=== PATIENT | male | born 1930 | race Caucasian/White ===

== ENCOUNTER 2019-07-28 17:55 | Observation (INO) ==
[2019-07-28 18:51] LABS: Hematocrit 40.9 % (42.0-52.0); Hemoglobin 13.9 gm/dL (13.5-18.0); Mean Cell Volume 101.5 fl (78-100); Mean Corpuscular Hemoglobin 34.5 pg (27-31); Mean Platelet Volume 8.6 fl (8-11.3); Neutrophil # 7.6 K/mm3 (1.3-6.0); Neutrophil % 93.3 % (42-75.0); Platelet Count 176 K/mm3 (150-450); Red Blood Count 4.03 M/mm3 (4.7-6.0); Red Cell Distribution Width 11.9 % (11.5-14.0); White Blood Count 8.1 K/mm3 (4.0-10.5)
[2019-07-28 19:02] LABS: Albumin * 3.5 gm/dl (3.4-5.0); Anion Gap 13.8 mmol/L (6.8-13.8); BUN/Creatinine Ratio 19.4 (9.0-21.6); Bilirubin, Total 0.7 mg/dL (0.0-1.1); Calcium * 8.9 mg/dL (7.9-10.9); Carbon Dioxide 26.7 mmol/L (24-32.6); Potassium 4.5 mmol/L (3.4-4.6); Total Protein 6.9 gm/dL (6.2-8.2)
[2019-07-28 19:59] LABS: Urine Bilirubin Negative (NEGATIVE); Urine Blood Negative /ul (NEGATIVE); Urine Ketone Negative (NEGATIVE); Urine Nitrite Negative (NEGATIVE); Urine Protein >=300 mg/dL (NEGATIVE); Urine Specific Gravity <=1.005 SP.GR. (1.005-1.030); Urine Urobilinogen Normal (NORMAL)
[2019-07-28 20:06] LABS: Urine Appearance Cloudy (CLEAR); Urine Color Yellow; Urine pH >=9 pH (5.0-7.0)
[2019-07-28 20:07] LABS: Urine Bacteria 1+; Urine Mucus Few - 1+; Urine RBC 0-5 /hpf (0-5)
--- NOTE | 2019-07-28 20:41 | ERNOTE ---
Neuro HPI ER Record Date of Service: 07/28/19 Presenting Symptoms: difficulty walking Time Seen by Provider: 07/28/19 18:05 Source: patient, family Exam Limitations: no limitations Immunizations: IMMUNIZATION HX Immunizations Up to Date Yes History of Influenza Vaccine Yes Hx Pneumococcal Vaccination Yes Allergies/Adverse Reactions: Allergies Allergy/AdvReac Type Severity Reaction Status Date / Time No Known Allergies Allergy Verified 07/28/19 18:03 Home Medications: HOME MEDICATIONS vitamins A,C,Q-ubvl-gksplg 7,160 unit-113 mg-100 unit tablet 1 tab PO BID tab 08/07/18 [Last Taken Unknown] gabapentin 600 mg tablet 600 mg PO BID #180 tab 11/21/18 [Last Taken Unknown] simvastatin 40 mg tablet 40 mg PO QPM #90 tab 03/09/19 [Last Taken Unknown] - Pain Score Pain Score #1 Pain Score: 0 - History of Present Illness Narrative: The patient is a 89 year old male who presents for difficulty walking and weakness which has been present since [employer]. There are no associated symptoms. The patient denies pain. There are no alleviating factors. There are no aggravating factors. Previous treatments have included: none. The past medical history includes: Bladder Ca, BPH and kidney stone. The social history is positive for former smoker. The patient has had no ill contacts. 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 states that when patient returned home around 1730 he was having difficulty with walking, finding his words and was noted to be weak. Patient upon arrival states patient has improved. Review of Systems - Review of Systems Constitutional: Present: no symptoms reported. Absent: recent illness, fever, fatigue EYE: Present: no symptoms reported. Absent: vision changes ENT: Present: no symptoms reported. Absent: ear pain, nasal drainage, sore throat Respiratory: Present: no symptoms reported. Absent: shortness of breath, cough Cardiology: Present: no symptoms reported. Absent: chest pain Gastrointestinal/Abdominal: Present: no symptoms reported. Absent: nausea, vomiting, diarrhea, abdominal pain Genitourinary: Present: no symptoms reported. Absent: dysuria Musculoskeletal: Present: no symptoms reported Skin: Present: no symptoms reported. 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 Horn with [facility] Encounter for central line placement Onset Date: ~12/07/10 [facility] right subclavian central venous line H/O barium enema Onset Date: ~10/03/11 [facility]; scattered diverticular disease no masses H/O exploratory laparotomy Onset Date: ~12/22/10 [facility] repair of small bowel obstruction H/O total cystectomy Onset Date: ~12/07/10 Dr. Ilan Everett History of flexible sigmoidoscopy Onset Date: ~02/05/02 Dr. Angel Chiang MD Normal redundant colon History of genitourinary surgery Onset Date: ~12/07/10 ileal coduit urinary diversion. Dr. Ilan Everett [facility] History of radical prostatectomy Onset Date: ~12/07/10 Dr. Ilan Everett Hx of lithotripsy Onset Date: Unknown x3 Family History: Family History (Updated 08/07/18 @ 16:30 by Reina Baker RN) Father , unknown age; "old age" No problems noted. Mother , unknown age Diabetes Arthritis Social History: (Last Reviewed 07/28/19 @ 20:22 by CAN Glez) Social History: adopted: No Marital status: lives independently: Yes household members: spouse number of children: 2 current occupational status: retired Previous occupational history: [employer] Highest education level completed: high school graduate Service: Yes Tobacco: Smoking Status: Former smoker Alcohol: alcohol intake: never Substance Use: substance use type: unknown Dietary Habits: caffeine: Yes Physical Exam - Physical Exam General Appearance: Present: wd/wn, alert, no apparent distress Head Exam: Present: normal inspection, no evidence of injury Eye Exam: Normal inspection: bilateral, PERRL: bilateral, EOMI: bilateral Neck: Present: normal inspection Respiratory: Present: no respiratory distress, normal breath sounds, no accessory muscle use, lungs clear Cardiovascular/Chest: Present: regular rate, rhythm, no murmur Gastrointestinal/Abdominal: Present: normal bowel sounds, nontender, nond istended, soft, no organomegaly Neurological Exam: Present: alert, oriented, normal mood/affect, 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, normal cerebellar test, facial droop - intermittent droop noted to left face, tongue midline, motor weakness - slight jama drift to left arm Skin Exam: Present: normal color, warm/dry Boissevain Coma Scale - Assess Eye Opening: Spontaneous Motor: Obeys Commands Verbal: Oriented - Total Coma Scale Total: 15 Initial Stroke Assessment - NIH Stroke Scale Level of Consciousness: Alert LOC Questions (Year and Age): Answers both correctly LOC Commands (open/close eyes/fist): Performs both correctly Lateral Gaze Paresis: None Visual Field Loss: No visual loss Facial Palsy: Normal movement Right Arm Motor (10 sec hold): No drift Left Arm Motor (10 sec hold): Drift Right Leg Motor (5 sec hold): No drift Left Leg Motor (5 sec hold): No drift Limb Ataxia (finger/nose heel/carmichael): Absent Sensory Loss (pinprick arms/legs/face): No sensory loss Language Aphasia (description/naming/reading): No aphasia; normal Dysarthria (speech clarity): Normal articulation Neglect Inattention (visual/tactile/auditory/spatial/person): No neglect Initial Stroke Scale Score:: 1 Stroke Inclusion/Exclusion Cri - Inclusion Questions: Yes Onset of symptoms <3 1/2 hours of admission to ETC: No - Exclusion Questions: Major symptoms rapidly improving: Yes Seizure at onset of stroke: No SBP>185; DBP>110 at time treatment is to begin: No Patient received Heparin or Coumadin within 48 hours: No Patient has elevated PTT or Protime/INR: No Stroke, head injury, major surgery, serious trauma in 3 mon.: No Previous intracranial hemmorhage: No Recent [place]: No Known AV malformation or aneurysm: No Blood glucose <50mg/dl or >400mg/dl: No NIHSS Score <4 or >22 performed by physician: Yes Progress - Date and Time Seen: Date and Time: 07/28/19 20:19 Discussed case with and will admit for observation with testing of MRI Brain and Carotid Duplex tomorrow. - Results and Orders Patient's Lab Results:: I have reviewed the patient's lab results. - Vital Signs Patient's Vital Signs:: I have reviewed the patient's vital signs. Vital Signs: Vital Signs 07/28/19 18:03 Temperature 37.4 C Pulse Rate 88 Respiratory Rate 16 Blood Pressure 119/68 O2 Sat by Pulse Oximetry 95 - EKG EKG #1 EKG: NSR, nonspecific ST T wave changes, other EKG read: Reviewed by me EKG Comments: Incomplete RBBB Left Anterior fascicular block - X-Ray X-Ray #1 X-Ray: chest Interpretation: Reviewed by me - CT/Ultrasound CT/Ultrasound Narrative: Impression: No acute intracranial process. Mild cerebral volume loss. Mild chronic small vessel ischemic disease. Opacification of the left sphenoid sinus. Electronically signed by Elke Man D.O.. - Progress/Reassessment Chief Complaint: Altered Mental Status Departure Clinical Impression: TIA (transient ischemic attack) - Departure Disposition: Still a patient Condition: Stable Referrals: María Elena Amato MD [Primary Care Provider] -
--- NOTE | 2019-07-29 08:28 | HPDIS ---
Chief Complaint - Chief Complaint Date of Service: 07/29/19 Time of Service: 08:20 Chief Complaint: difficulty of walking History of Present Illness: Cam Ko is an 89-year-old white male with past medical history of bladder cancer, macular degeneration, hyperlipidemia, who was admitted on 07/28/2019 because of difficulty of walking. The patient says that is early in the morning he got a calf out of a ditch and had his right foot stuck in a mud pool. He says he went back home for dinner and then went to his friend's house after that. His friends did not notice any thing unusual with him. On the way back he started having this shakiness. His called his son and they brought him to the emergency room. This is very different from his 's story in the ED. The said that the patient was his usual self when he left the house at 1230. 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 When he returned around 5:30 p.m. the noticed that he was having difficulty with walking, finding his words and was noted to be weak. In the emergency room his blood work-up were essentially within normal limits except for a possible urinary tract infection. His CTS showed -No acute intracranial process.Mild cerebral volume loss. Mild chronic small vessel ischemic disease.Opacification of the left sphenoid sinus. This morning the patient says he is his back to his usual self and just came back from an MRI of the brain. We will start him baby ASA and will await for official reading of his MRI . 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 Horn with [facility] Encounter for central line placement Onset Date: ~12/07/10 [facility] right subclavian central venous line H/O barium enema Onset Date: ~10/03/11 [facility]; scattered diverticular disease no masses H/O exploratory laparotomy Onset Date: ~12/22/10 [facility] repair of small bowel obstruction H/O total cystectomy Onset Date: ~12/07/10 Dr. Ilan Everett History of flexible sigmoidoscopy Onset Date: ~02/05/02 Dr. Angel Chiang MD Normal redundant colon History of genitourinary surgery Onset Date: ~12/07/10 ileal coduit urinary diversion. Dr. Ilan Everett [facility] History of radical prostatectomy Onset Date: ~12/07/10 Dr. Ilan Everett Hx of lithotripsy Onset Date: Unknown x3 Family History: Family History (Updated 08/07/18 @ 16:30 by Reina Baker RN) Father , unknown age; "old age" No problems noted. Mother , unknown age Diabetes Arthritis Social History: (Last Reviewed 07/28/19 @ 20:22 by CAN Glez) Social History: adopted: No Marital status: lives independently: Yes household members: spouse number of children: 2 current occupational status: retired Previous occupational history: [employer] Highest education level completed: high school graduate Service: Yes Tobacco: Smoking Status: Former smoker Alcohol: alcohol intake: never Substance Use: substance use type: unknown Dietary Habits: caffeine: Yes Review Of Systems (GEN) - Review of Systems Generalized/Overall Review: Present: Weakness. Absent: Chills, Fever EENTM: Present: Blurred Vision Respiratory: Absent: Cough, Shortness of Breath Cardiac: Absent: Chest Pain, Edema, Palpitations Abdominal: Absent: Nausea, Vomiting, Hematemesis Genitourinary: Absent: Urgency, Frequency Musculoskeletal: Present: Joint Pain. Absent: Back Pain Neurological: Absent: Headache, Anxiety, Depressed Skin: Present: Lesions. Absent: Rash Endocrine: Absent: Intolerance to Cold, Intolerance to Heat Misc: All systems neg except as marked Immunizations: IMMUNIZATION HX Immunizations Up to Date Yes History of Influenza Vaccine Yes Hx Pneumococcal Vaccination Yes Allergies/Adverse Reactions: Allergies Allergy/AdvReac Type Severity Reaction Status Date / Time No Known Allergies Allergy Verified 07/28/19 21:00 Home Medications: HOME MEDICATIONS vitamins A,C,P-cauu-yjfbee 7,160 unit-113 mg-100 unit tablet 1 tab PO BID tab 08/07/18 [Last Taken Unknown] simvastatin 40 mg tablet 40 mg PO QPM #90 tab 03/09/19 [Last Taken Unknown] Gabapentin [Neurontin] 300 mg PO DAILY 07/28/19 [Last Taken Unknown] Aspirin [Aspirin Chewable] 81 mg PO DAILY #30 tab.chew 07/29/19 [Last Taken Unknown] Exam - Exam Vital Signs: Vital Signs - Last Taken Temp 36.3 C 07/29/19 04:00 Pulse 62 07/29/19 04:00 Resp 16 07/29/19 04:00 BP 108/63 07/29/19 04:00 Pulse Ox 98 07/29/19 04:00 Constitutional: Present: Alert, Oriented x3, Cooperative ENT Exam: Present: hard of hearing Eye Exam: bilateral eye: normal inspection, PERRL, EOMI Neck: Present: supple. 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, no motor/sensory deficits, oriented x 3 Diagnostic Studies: Abnormal Lab Results 07/28/19 07/28/19 07/28/19 Range/Units 18:47 18:47 19:46 RBC 4.03 L (4.7-6.0) M/mm3 Hct 40.9 L (42.0-52.0) % MCV 101.5 H (78-100) fl MCH 34.5 H (27-31) pg Neutrophils % 93.3 H (42-75.0) % Lymphocytes % 1.8 L (20-51) % Neutrophils # 7.6 H (1.3-6.0) K/mm3 Lymphocytes # 0.15 L (1.5-3.5) k/mm3 Random Glucose 123 H (70-110) mg/dL ALT 12 L (19-67) U/L Urine Protein >=300 H (NEGATIVE) mg/dL Prot Sulfosalicylic Acd 2+ H (0) mg/dL Ur Leukocyte Esterase 75 H (NEGATIVE) /ul Urine WBC 5-10 H (0-5) /hpf Urine Bacteria 1+ H (NONE) Urine Mucus Few - 1+ H (NONE) Microbiology 07/28/19 19:46 Urine Culture - Preliminary Urine,Voided No Growth Laboratory Results WBC 8.1 K/mm3 (4.0-10.5) 07/28/19 18:47 RBC 4.03 M/mm3 (4.7-6.0) L 07/28/19 18:47 Hgb 13.9 gm/dL (13.5-18.0) 07/28/19 18:47 Hct 40.9 % (42.0-52.0) L 07/28/19 18:47 MCV 101.5 fl (78-100) H 07/28/19 18:47 MCH 34.5 pg (27-31) H 07/28/19 18:47 MCHC 34.0 g/dl (32-36) 07/28/19 18:47 RDW 11.9 % (11.5-14.0) 07/28/19 18:47 Plt Count 176 K/mm3 (150-450) 07/28/19 18:47 MPV 8.6 fl (8-11.3) 07/28/19 18:47 Immature Gran % (Auto) 0.20 % (0.001-0.429) 07/28/19 18:47 Immature Gran # (Auto) 0.02 K/mm3 (0.000-0.0310) 07/28/19 18:47 93.3 % (42-75.0) H 07/28/19 18:47 1.8 % (20-51) L 07/28/19 18:47 4.1 % (0.0-9) 07/28/19 18:47 0.4 % (0.0-3.0) 07/28/19 18:47 0.2 % (0.0-1.0) 07/28/19 18:47 Nucleated RBC % 0.0 k/mm3 (0-1) 07/28/19 18:47 7.6 K/mm3 (1.3-6.0) H 07/28/19 18:47 0.15 k/mm3 (1.5-3.5) L 07/28/19 18:47 0.3 k/mm3 (0.0-1.0) 07/28/19 18:47 0.0 k/mm3 (0.0-0.7) 07/28/19 18:47 Absolute Basophils 0.0 k/mm3 (0.0-0.1) 07/28/19 18:47 Sodium 138 mmol/L (132-142) 07/28/19 18:47 138 mmol/L (130-142) 07/28/19 18:47 Potassium 4.5 mmol/L (3.4-4.6) 07/28/19 18:47 Chloride 102 mmol/L (97-106) 07/28/19 18:47 Carbon Dioxide 26.7 mmol/L (24-32.6) 07/28/19 18:47 13.8 mmol/L (6.8-13.8) 07/28/19 18:47 BUN 21 mg/dL (6-23) 07/28/19 18:47 1.08 mg/dL (0.4-1.4) 07/28/19 18:47 Est GFR (Non-Af Amer) 69 mL/min (60-130) D 07/28/19 18:47 19.4 (9.0-21.6) 07/28/19 18:47 123 mg/dL (70-110) H 07/28/19 18:47 Calcium 8.9 mg/dL (7.9-10.9) 07/28/19 18:47 Calcium Adj for Albumin 9.0 mg/dL (8.4-10.2) 07/28/19 18:47 0.7 mg/dL (0.0-1.1) 07/28/19 18:47 AST 31 U/L (0-48) 07/28/19 18:47 ALT 12 U/L (19-67) L 07/28/19 18:47 59 U/L (50-170) 07/28/19 18:47 6.9 gm/dL (6.2-8.2) 07/28/19 18:47 3.5 gm/dl (3.4-5.0) 07/28/19 18:47 Yellow 07/28/19 19:46 Cloudy (CLEAR) 07/28/19 19:46 >=9 pH (5.0-7.0) 07/28/19 19:46 Ur Specific Lincoln <=1.005 SP.GR. (1.005-1.030) 07/28/19 19:46 >=300 mg/dL (NEGATIVE) H 07/28/19 19:46 Negative mg/dL (NEGATIVE) 07/28/19 19:46 Negative mg/dL (NEGATIVE) 07/28/19 19:46 Negative /ul (NEGATIVE) 07/28/19 19:46 Negative (NEGATIVE) 07/28/19 19:46 Negative mg/dl (NEGATIVE) 07/28/19 19:46 Prot Sulfosalicylic Acd 2+ mg/dL (0) H 07/28/19 19:46 Normal EU/dl (NORMAL) 07/28/19 19:46 Ur Leukocyte Esterase 75 /ul (NEGATIVE) H 07/28/19 19:46 0-5 /hpf (0-5) 07/28/19 19:46 5-10 /hpf (0-5) H 07/28/19 19:46 Ur Epithelial Cells 0-5 /hpf (0-5) 07/28/19 19:46 1+ (NONE) H 07/28/19 19:46 Few - 1+ (NONE) H 07/28/19 19:46 Culture to follow 07/28/19 19:46 Assessment/Plan - Narrative Narrative: We will await official reading of his MRI. If negative will discharge patient and will CUS and EAcho with bbule study as outpatient. Will continue his home medications. Will start him on baby ASA for now. - Assessment/Plan (1) TIA (transient ischemic attack) Assessment: will follow up with MRI. start ASA. ADDENDUM: MRi no acute intracranial findings. Will schedule a CUS and Echo with bubble study as outpatient. Problem: Resolved (2) Macular degeneration Problem: Chronic Qualifiers: Macular degeneration type: unspecified type Eye laterality: unspecified Qualified Code(s): H35.30 - Unspecified macular degeneration (3) History of bladder cancer Problem: Chronic (4) Hypercholesterolemia Problem: Chronic (5) Calculus of kidney Problem: Chronic (6) UTI (urinary tract infection) Assessment: on UA but preliminary reading of UCS - NG. Problem: Acute Qualifiers: Encounter type: initial encounter (1) TIA (transient ischemic attack) Diagnosis(s): vs heat stroke? Problem: Resolved (2) Macular degeneration Problem: Chronic Qualifiers: Macular degeneration type: unspecified type Eye laterality: unspecified Qualified Code(s): H35.30 - Unspecified macular degeneration (3) History of bladder cancer Problem: Chronic (4) Hypercholesterolemia Problem: Chronic (5) Calculus of kidney Problem: Chronic (6) UTI (urinary tract infection) Diagnosis(s): NG on preliminary reading. Problem: Acute Qualifiers: Encounter type: initial encounter Date of Discharge:: 07/29/19 Description of Stay: Cam Ko is an 89-year-old white male with past medical history of bladder cancer, macular degeneration, hyperlipidemia, who was admitted on 07/28/2019 because of difficulty of walking. The patient says that is early in the morning he got a calf out of a ditch and had his right foot stuck in a mud pool. He says he went back home for dinner and then went to his friend's house after that. His friends did not notice any thing unusual with him. On the way back he started having this shakiness. His called his son and they brought him to the emergency room. This is very different from his 's story in the ED. The said that the patient was his usual self when he left the house at 1230. 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 When he returned around 530 noticed that he was having difficulty with walking, finding his words and was noted to be weak. In the emergency room his blood work-up were essentially within normal limits except for a possible urinary tract infection. His CTS showed -No acute intracranial process.Mild cerebral volume loss. Mild chronic small vessel ischemic disease.Opacification of the left sphenoid sinus. When seen this morning the patient says is his back to his usual self. His MRI showed - MODERATE TO SEVERE DIFFUSE ATROPHY WITH MILD TO MODERATE WHITE MATTER MICROVASCULAR ISCHEMIC DISEASE. NO ACUTE INTRACRANIAL PATHOLOGY OTHERWISE IDENTIFIED. He is stable to be discharged today and will schedule a CUS and Echo with bubble study on outpatient basis. If WNL , the patient could have had a heat stroke as he was out in the field freeing a calf that was stucked in the ditch versus a TIA. We will discuss then whether to continue him on a baby ASA or not. we will follow up patient in 2 weeks. Procedures Performed: none Results and Findings: Pending Mircobiology Results 07/28/19 19:46 Urine,Voided Urine Culture - Preliminary No Growth Lab Pending Results 07/28/19 18:47: WBC 8.1, RBC 4.03 L, Hgb 13.9, Hct 40.9 L, MCV 101.5 H, MCH 34.5 H, MCHC 34.0, RDW 11.9, Plt Count 176, MPV 8.6, Immature Gran % (Auto) 0.20, Immature Gran # (Auto) 0.02, Neutrophils % 93.3 H, Lymphocytes % 1.8 L, Monocytes % 4.1, Eosinophils % 0.4, Basophils % 0.2, Nucleated RBC % 0.0, Neutrophils # 7.6 H, Lymphocytes # 0.15 L, Monocytes # 0.3, Eosinophils # 0.0, Absolute Basophils 0.0 07/28/19 18:47: Sodium 138, Plasma Sodium 138, Potassium 4.5, Chloride 102, Carbon Dioxide 26.7, Anion Gap 13.8, BUN 21, Creatinine 1.08, Est GFR (Non-Af Amer) 69 D, BUN/Creatinine Ratio 19.4, Random Glucose 123 H, Calcium 8.9, Heriberto cium Adj for Albumin 9.0, Total Bilirubin 0.7, AST 31, ALT 12 L, Alkaline Phosphatase 59, Total Protein 6.9, Albumin 3.5 07/28/19 19:46: Urine Color Yellow, Urine Appearance Cloudy, Urine pH >=9, Ur Specific Lincoln <=1.005, Urine Protein >=300 H, Urine Glucose (UA) Negative, Urine Ketones Negative, Urine Blood Negative, Urine Nitrate Negative, Urine Bilirubin Negative, Prot Sulfosalicylic Acd 2+ H, Urine Urobilinogen Normal, Ur Leukocyte Esterase 75 H, Urine RBC 0-5, Urine WBC 5-10 H, Ur Epithelial Cells 0- 5, Urine Bacteria 1+ H, Urine Mucus Few - 1+ H, Urine Culture Comments Culture to follow Discharge Location: Home Disposition: Home self-care Condition: Stable Discharge Activity: Activity as tolerated Discharge Diet: General/regular food Referrals: María Elena Amato MD [Primary Care Provider] - Additional Patient Instructions (free text): -Please make TCM appointment unless fci discharge, or if following up with outside provider. Please schedule CUS and Echo with bubble study as outpatient. Follow up with PCP in 2 weeks. Thank you! Jeanne @ [facility] [phone] or Saadia at [facility] [phone]. Prescriptions (Any new or edited meds): Aspirin [Aspirin Chewable] 81 mg PO DAILY #30 tab.chew Complete Home Medications List: Complete Home Medication List: vitamins A,C,V-eccz-visnla 7,160 unit-113 mg-100 unit tablet 1 tab PO BID tab 08/07/18 simvastatin 40 mg tablet 40 mg PO QPM #90 tab 03/09/19 Gabapentin [Neurontin] 300 mg PO DAILY 07/28/19 Aspirin [Aspirin Chewable] 81 mg PO DAILY #30 tab.chew 07/29/19 Amb Orders for Discharge: US Carotid Duplex Comp Bilat * Time Frame: 1 Week, Location: Radiology US Echocardiogram Bubble Study Time Frame: 1 Week, Location: Radiology US Echocardiogram Complete * Time Frame: 1 Week, Location: Radiology
[2019-07-29] MEDS ORDERED: ASPIRIN 325 MG TABLET.DR PO ONE ×2 (09:00→10:30)
[2019-07-29] MEDS ORDERED: GABAPENTIN 300 MG CAPSULE PO SCH (09:00)
[2019-07-29] MEDS: BETA-CAROTENE(A) W-C , E/MIN 1 TAB TABLET PO SCH ×2 (10:39→10:40)
[2019-07-29 15:45] VITALS: BP 103/59
[2019-07-29] MEDS ORDERED: SIMVASTATIN 40 MG TABLET PO SCH (17:00)
[2019-07-30] MEDS ORDERED: ASPIRIN 81 MG TAB.CHEW PO SCH (09:00)
== END 2019-07-29 15:45 | disposition home or self-care (01) ==
LOC: ER 17:55 → MS 17:55
PROVIDERS: ADMIT Internal Medicine; ATTEND Internal Medicine
CPT/HCPCS: 36415; 70450; 70553; 71020; 71046; 80053; 81001; 85025; 87086; 93005; 94762; 99285; A9576; G0378

== ENCOUNTER 2019-11-01 10:40 | Inpatient (IN) ==
[2019-11-01] MEDS ORDERED: DILTIAZEM HCL 5 MG/ML VIAL IV ONE ×3 (10:52→11:17)
--- NOTE | 2019-11-01 11:04 | ERNOTE ---
Dyspnea - General Presenting Symptoms: shortness of breath Time Seen by Provider: 11/01/19 10:47 Source: patient Exam Limitations: no limitations - Immun/Allergies/Home Medications Immunizations: IMMUNIZATION HX Immunizations Up to Date Yes History of Influenza Vaccine Yes Hx Pneumococcal Vaccination Yes Allergies/Adverse Reactions: Allergies No Known Allergies Allergy (Verified 11/01/19 10:50) Home Medications: HOME MEDICATIONS vitamins A,C,I-rist-cmzdyo 7,160 unit-113 mg-100 unit tablet 1 tab PO BID tab 08/07/18 [Last Taken 10/25/19] Gabapentin [Neurontin] 300 mg PO DAILY 07/28/19 [Last Taken 10/25/19] Durable Medical Equipment See Rx Instructions .ROUTE .MEDSUPPLY #12 ea 08/10/19 [Last Taken Unknown] simvastatin 40 mg tablet 40 mg PO QPM #90 tab 10/05/19 [Last Taken 10/25/19] Aspirin [Aspir-Low] 81 mg PO DAILY 11/01/19 [Last Taken Unknown] - History of Present Illness Narrative: Patient presents with shortness of breath with any exertion. Also complains of some heart palpitation-like symptoms, and pain in the right calf. Of note he had cataract surgery approximately 1 week ago. 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 Initiating event: Reports: none Frequency of episodes: Reports: no prior episodes Modifying Factors - (Improves): Reports: lying down, rest Modifying Factors (Worsens): Reports: activity Associated Symptoms-Dyspnea: Reports: palpitations Prior Treatment: Reports: recently seen, treated by physician Review of Systems - Review of Systems Constitutional: Present: See HPI EYE: Present: no symptoms reported ENT: Present: no symptoms reported Respiratory: Present: See HPI Cardiology: Present: See HPI Gastrointestinal/Abdominal: Present: no symptoms reported Genitourinary: Present: no symptoms reported Musculoskeletal: Present: See HPI Skin: Present: no symptoms reported Neurological: Present: no symptoms reported Endocrine: Present: no symptoms reported Hematologic/Lymphatic: Present: no symptoms reported Psych: Present: no symptoms reported Medical History (Last Reviewed 11/01/19 @ 11:52 by Kamla Martin RN) Hypercholesterolemia (Chronic) Onset Date: Unknown Calculus of kidney (Chronic) Onset Date: Unknown BPH (benign prostatic hyperplasia) (Chronic) Onset Date: Unknown without urinary obstruction 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 Horn with [facility] Encounter for central line placement Onset Date: ~12/07/10 [facility] right subclavian central venous line H/O barium enema Onset Date: ~10/03/11 [facility]; scattered diverticular disease no masses H/O exploratory laparotomy Onset Date: ~12/22/10 [facility] repair of small bowel obstruction H/O total cystectomy Onset Date: ~12/07/10 Dr. Ilan Everett History of flexible sigmoidoscopy Onset Date: ~02/05/02 Dr. Angel Chiang MD Normal redundant colon History of genitourinary surgery Onset Date: ~12/07/10 ileal coduit urinary diversion. Dr. Ilan Everett [facility] History of radical prostatectomy Onset Date: ~12/07/10 Dr. Ilan Everett Hx of lithotripsy Onset Date: Unknown x3 Family History: Family History (Last Reviewed 11/01/19 @ 11:52 by Kamla Martin, RN) Father , unknown age; "old age" No problems noted. Mother , unknown age Diabetes Arthritis Brother Myocardial infarction Son Alive and well Son Alive and well Social History: (Last Reviewed 11/01/19 @ 11:53 by Kamla Martin, RN) Social History: adopted: No Marital status: lives independently: Yes household members: spouse number of children: 2 current occupational status: retired Previous occupational history: [employer] Highest education level completed: high school graduate Service: Yes Tobacco: Smoking Status: Former smoker Alcohol: alcohol intake: never Substance Use: substance use type: unknown Dietary Habits: caffeine: Yes Physical Exam - Physical Exam General Appearance: Present: wd/wn, alert, moderate distress Head Exam: Present: normal inspection, no evidence of injury Eye Exam: Normal inspection: bilateral, PERRL: bilateral Ears, Nose, Throat: Present: normal ENT inspection, H, normal pharynx Neck: Present: normal inspection, nontender Respiratory: Present: no respiratory distress, normal breath sounds, no accessory muscle use, chest nontender, lungs clear Cardiovascular/Chest: Present: no murmur, normal peripheral pulses, tachycardia, irregularly irregular Gastrointestinal/Abdominal: Present: normal bowel sounds, nontender, nondistended, soft, no organomegaly Rectal Exam: Present: deferred Back Exam: Present: normal inspection, normal range of motion Extremity Exam: Present: normal range of motion, no edema, calf tenderness - On the right Neurological Exam: Present: alert, oriented, normal mood/affect Skin Exam: Present: normal color, warm/dry Lymphatic Exam: Present: no adenopathy Progress - Results and Orders Patient's Lab Results:: I have reviewed the patient's lab results. - Vital Signs Patient's Vital Signs:: I have reviewed the patient's vital signs. Vital Signs: Vital Signs 11/01/19 10:48 11/01/19 10:50 11/01/19 10:57 Temperature 36.5 C Pulse Rate 135 H 123 H 128 H Respiratory Rate 17 17 Blood Pressure 130/95 H 136/89 O2 Sat by Pulse Oximetry 95 95 - EKG EKG #1 EKG: atrial fibrillation, RBBB EKG read: Reviewed by me - X-Ray X-Ray #1 X-Ray: chest Interpretation: Reviewed by me - Progress/Reassessment Chief Complaint: Dyspnea Plan - Plan Plan: Patient will be admitted to a monitored bed and an echocardiogram will be scheduled for tomorrow. Departure Clinical Impression: Atrial fibrillation with rapid ventricular response - Departure Disposition: Still a patient Condition: Fair Referrals: María Elena Amato MD [Primary Care Provider] - Critical Care Note - Critical Care Note Total Time (mins): 50 Comments: Patient required numerous interventions to get a better handle on the atrial fibrillation. We initially started off with diltiazem 0.25 mg/kg IV but his pressure dropped too precipitously, so we went to digoxin 0.25 mg/kg total of 3 doses which did bring his heart rate down from the 140s down into the 100 teens. We are going to start him on initially 5 mg of Lopressor IV as well. We had to anticoagulate him because of the new onset atrial fibrillation. CT of the chest did not reveal any evidence of any PE, however an incidental finding of a 4 cm a sending aortic dilatation was noted. It did not appear to be aneurysmal on the CT and there did not appear to be any dissection.
[2019-11-01] MEDS ORDERED: DILTIAZEM HCL 125 MG in DEXTROSE 5 % IN WATER 100 ML IV PRN ×2 (11:17)
[2019-11-01 11:25] LABS: Hematocrit 43.4 % (42.0-52.0); Hemoglobin 14.3 gm/dL (13.5-18.0); Mean Cell Volume 103.6 fl (78-100); Mean Corpuscular Hemoglobin 34.1 pg (27-31); Mean Corpuscular Hgb Conc 32.9 g/dl (32-36); Mean Platelet Volume 8.9 fl (8-11.3); Neutrophil # 4.1 K/mm3 (1.3-6.0); Neutrophil % 78.9 % (42-75.0); Platelet Count 233 K/mm3 (150-450); Red Blood Count 4.19 M/mm3 (4.7-6.0); Red Cell Distribution Width 12.9 % (11.5-14.0); White Blood Count 5.2 K/mm3 (4.0-10.5)
[2019-11-01] MEDS ORDERED: DIGOXIN 0.25 MG/ML AMPUL IV ONE ×3 (11:27→13:29)
[2019-11-01 11:37] LABS: Prothrombin Time (Patient) 13.9 Seconds (9.1-10.7)
[2019-11-01 11:41] LABS: INR 1.42 INR (0.92-1.08); Partial Thrombolplastin Time 24.4 Seconds (24-32)
[2019-11-01 11:45] LABS: Albumin * 3.5 gm/dl (3.4-5.0); Anion Gap 11.4 mmol/L (6.8-13.8); BUN/Creatinine Ratio 18.6 (9.0-21.6); Bilirubin, Total 0.7 mg/dL (0.0-1.1); Ca. Corrected For Albumin 8.6 mg/dL (8.4-10.2); Calcium * 8.5 mg/dL (7.9-10.9); Carbon Dioxide 28.5 mmol/L (24-32.6); Potassium 4.9 mmol/L (3.4-4.6); Total Protein 6.9 gm/dL (6.2-8.2)
[2019-11-01 11:46] LABS: Troponin I 0.092 ng/mL (0.00-0.10)
[2019-11-01] MEDS ORDERED: ENOXAPARIN SODIUM 80 MG/0.8 ML DISP.SYRIN SC ONE (13:53)
[2019-11-01] MEDS ORDERED: METOPROLOL TARTRATE 1 MG/ML AMPUL IV ONE (14:01)
[2019-11-01] MEDS: METOPROLOL TARTRATE 50 MG TABLET PO SCH ×2 (15:11→20:59)
[2019-11-01] MEDS ORDERED: ACETAMINOPHEN 325 MG TABLET PO PRN (20:19)
[2019-11-01] MEDS ORDERED: ENOXAPARIN SODIUM 40 MG/0.4 ML SYRG SC SCH (21:00)
--- NOTE | 2019-11-01 21:08 | HP ---
Chief Complaint - Chief Complaint Date of Service: 11/01/19 Time of Service: 20:49 Chief Complaint: I had sudden shortness of breath that started this morning. History of Present Illness: 89-year-old male with past medical history of BPH, bladder cancer, hyperlipidemia, chronic back pain, and recent cataract surgery from 2 weeks ago was evaluated in our ER due to sudden onset of severe shortness of breath on mild exertion that started earlier this morning while the patient [place]. Patient reports that the day started uneventfully and he was attempting to walk over to get some livestock when he tried walking less than 50 feet and became severely short of breath. He became alarmed when his symptoms did not subside and went home and told his about the events that occurred. Patient reports that he occasionally gets short of breath but he always thought that it was because he was old and out of shape. However he says this episode was very different from the previous and was sudden and gradually worsening. His brought him to the ER for evaluation where he was found to have a new onset atrial fibrillation on EKG. Patient denies ever having any heart troubles or high blood pressure and says the only thing he remembers was being told by his PCP that he has a heart murmur almost a year ago. He subsequently underwent an echo but his PCP told him the results were not concerning. Patient denies h aving any troubles after that until now. He denies any chest pain, dizziness, or palpitations. Medical History (Last Reviewed 11/01/19 @ 15:16 by Sydnee Norton RN) Hypercholesterolemia (Chronic) Onset Date: Unknown Calculus of kidney (Chronic) Onset Date: Unknown BPH (benign prostatic hyperplasia) (Chronic) Onset Date: Unknown without urinary obstruction Bladder neoplasm Onset Date: ~12/07/10 Malignant; Dr. 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 Horn with [facility] Encounter for central line placement Onset Date: ~12/07/10 [facility] right subclavian central venous line H/O barium enema Onset Date: ~10/03/11 [facility]; scattered diverticular disease no masses H/O exploratory laparotomy Onset Date: ~12/22/10 [facility] repair of small bowel obstruction H/O total cystectomy Onset Date: ~12/07/10 Dr. Ilan Everett History of flexible sigmoidoscopy Onset Date: ~02/05/02 Dr. Angel Chiang MD Normal redundant colon History of genitourinary surgery Onset Date: ~12/07/10 ileal coduit urinary diversion. Dr. Ilan Everett [facility] History of radical prostatectomy Onset Date: ~12/07/10 Dr. Ilan Everett Hx of lithotripsy Onset Date: Unknown x3 Family History: Family History (Last Reviewed 11/01/19 @ 15:18 by Sydnee Norton RN) Father , unknown age; "old age" No problems noted. Mother , unknown age Diabetes Arthritis Brother Myocardial infarction Son Alive and well Son Alive and well Social History: (Last Reviewed 11/01/19 @ 11:53 by Kamla Martin RN) Social History: adopted: No Marital status: lives independently: Yes household members: spouse number of children: 2 current occupational status: retired Previous occupational history: [employer] Highest education level completed: high school graduate Service: Yes Tobacco: Smoking Status: Former smoker Alcohol: alcohol intake: never Substance Use: substance use type: unknown Dietary Habits: caffeine: Yes Peds Patient Hx - Developmental: No Pertinent Hx Peds Patient Hx - Medical: No Pertinent Hx Peds Patient Hx - Cardiac/Respiratory: No Pertinent Hx Peds Patient Hx - Surgical: No Surgical History Patient History - Cancer: No Hx of Cancer Review Of Systems (GEN) - Review of Systems Generalized/Overall Review: Present: No Symptoms Reported EENTM: Present: No Symptoms Reported Respiratory: Present: Shortness of Breath Cardiac: Present: Edema - Bilateral pedal edema Abdominal: Present: No Symptoms Reported Genitourinary: Present: No Symptoms Reported Musculoskeletal: Present: No Symptoms Reported Neurological: Present: No Symptoms Reported Skin: Present: No Symptoms Reported Endocrine: Present: No Symptoms Reported Immunizations: IMMUNIZATION HX Immunizations Up to Date Yes History of Influenza Vaccine Yes Hx Pneumococcal Vaccination Yes Allergies/Adverse Reactions: Allergies Allergy/AdvReac Type Severity Reaction Status Date / Time No Known Allergies Allergy Verified 12/15/19 10:50 Home Medications: HOME MEDICATIONS vitamins A,C,D-sbwm-obiopw 7,160 unit-113 mg-100 unit tablet 1 tab PO DAILY tab 08/07/18 [Last Taken 10/25/19] Gabapentin [Neurontin] 300 mg PO DAILY 07/28/19 [Last Taken 10/25/19] Durable Medical Equipment See Rx Instructions .ROUTE .MEDSUPPLY #12 ea 08/10/19 [Last Taken Unknown] simvastatin 40 mg tablet 40 mg PO QPM #90 tab 10/05/19 [Last Taken 10/25/19] Aspirin [Aspir-Low] 81 mg PO DAILY 11/01/19 [Last Taken Unknown] Exam - Exam Vital Signs: Vital Signs - Last Taken Temp 37 C 11/01/19 19:10 Pulse 118 H 11/01/19 19:10 Resp 18 11/01/19 19:10 BP 125/83 11/01/19 19:10 Pulse Ox 96 11/01/19 19:10 Constitutional: Present: Alert, Oriented x3, Cooperative, Well developed, Well nourished, No distress, Elderly ENT Exam: Present: normal ENT inspection, pharynx normal, hard of hearing Eye Exam: bilateral eye: normal inspection, PERRL, EOMI Neck: Present: non-tender, full range of motion, supple, normal inspection, trachea midline Back Exam: Present: normal inspection, no CVA tenderness, no vertebral tendernes s Breasts: Present: Exam deferred Respiratory: Present: no respiratory distress, no accessory muscle use, crackles - Bibasilar crackles Cardiovascular/Chest: Present: normal peripheral pulses, no chest tenderness, no gallop, no JVD, no murmur, no rub, irregularly irregular, edema - 2+ bilateral pedal edema Peripheral Pulses: carotid (R): 3+, carotid (L): 3+, femoral (R): 3+, femoral (L): 3+, dorsalis-pedis (R): 3+, dorsalis-pedis (L): 3+ Abdomen: Present: Normal bowel sounds, soft, nontender, nondistended, no rebound tenderness, no hepatospenomegaly, no masses, other - Colostomy on right lower quadrant /Rectal: Present: Exam deferred Extremity: Present: normal range of motion, non-tender, normal inspection, no calf tenderness, normal capillary refill, pedal edema - 2+ bilateral pedal edema Skin Exam: Present: normal color, warm/dry, no cyanosis Lymphatic: Present: no adenopathy Neurologic: Present: 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 II-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 nml as tested, normal cerebellar test, no motor/sensory deficits, alert, normal mood/affect, oriented x 3 Appearance: Present: appropriate appearance, appropriate insight, neat, no memory impairment Eye contact: Present: cooperative, good eye contact, normal speech Thoughts: Present: normal thought pattern, no apparent hallucination Diagnostic Studies: Abnormal Lab Results 11/01/19 11/01/19 11/01/19 Range/Units 11:04 11:04 11:04 RBC 4.19 L (4.7-6.0) M/mm3 MCV 103.6 H (78-100) fl MCH 34.1 H (27-31) pg Neutrophils % 78.9 H (42-75.0) % Lymphocytes % 10.6 L (20-51) % Lymphocytes # 0.55 L (1.5-3.5) k/mm3 PT 13.9 H (9.1-10.7) Seconds INR (Anticoag Therapy) 1.42 H (0.92-1.08) INR D-Dimer (0.19-0.49) ug/mL Potassium 4.9 H (3.4-4.6) mmol/L B-Natriuretic Peptide 7746 H (5-650) pg/mL 11/01/19 Range/Units 11:04 RBC (4.7-6.0) M/mm3 MCV (78-100) fl MCH (27-31) pg Neutrophils % (42-75.0) % Lymphocytes % (20-51) % Lymphocytes # (1.5-3.5) k/mm3 PT (9.1-10.7) Seconds INR (Anticoag Therapy) (0.92-1.08) INR D-Dimer 1.26 H (0.19-0.49) ug/mL Potassium (3.4-4.6) mmol/L B-Natriuretic Peptide (5-650) pg/mL Laboratory Results WBC 5.2 K/mm3 (4.0-10.5) 11/01/19 11:04 RBC 4.19 M/mm3 (4.7-6.0) L 11/01/19 11:04 Hgb 14.3 gm/dL (13.5-18.0) 11/01/19 11:04 Hct 43.4 % (42.0-52.0) 11/01/19 11:04 MCV 103.6 fl (78-100) H 11/01/19 11:04 MCH 34.1 pg (27-31) H 11/01/19 11:04 MCHC 32.9 g/dl (32-36) 11/01/19 11:04 RDW 12.9 % (11.5-14.0) 11/01/19 11:04 Plt Count 233 K/mm3 (150-450) 11/01/19 11:04 MPV 8.9 fl (8-11.3) 11/01/19 11:04 Immature Gran % (Auto) 0.20 % (0.001-0.429) 11/01/19 11:04 Immature Gran # (Auto) 0.01 K/mm3 (0.000-0.0310) 11/01/19 11:04 Neutrophils % 78.9 % (42-75.0) H 11/01/19 11:04 Lymphocytes % 10.6 % (20-51) L 11/01/19 11:04 Monocytes % 8.7 % (0.0-9) 11/01/19 11:04 Eosinophils % 0.8 % (0.0-3.0) 11/01/19 11:04 Basophils % 0.8 % (0.0-1.0) 11/01/19 11:04 Nucleated RBC % 0.0 k/mm3 (0-1) 11/01/19 11:04 Neutrophils # 4.1 K/mm3 (1.3-6.0) 11/01/19 11:04 Lymphocytes # 0.55 k/mm3 (1.5-3.5) L 11/01/19 11:04 Monocytes # 0.5 k/mm3 (0.0-1.0) 11/01/19 11:04 Eosinophils # 0.0 k/mm3 (0.0-0.7) 11/01/19 11:04 Absolute Basophils 0.0 k/mm3 (0.0-0.1) 11/01/19 11:04 PT 13.9 Seconds (9.1-10.7) H 11/01/19 11:04 INR (Anticoag Therapy) 1.42 INR (0.92-1.08) H 11/01/19 11:04 PTT (Nelda) 24.4 Seconds (24-32) 11/01/19 11:04 D-Dimer 1.26 ug/mL (0.19-0.49) H 11/01/19 11:04 Sodium 140 mmol/L (132-142) 11/01/19 11:04 Plasma Sodium 140 mmol/L (130-142) 11/01/19 11:04 Potassium 4.9 mmol/L (3.4-4.6) H 11/01/19 11:04 Chloride 105 mmol/L (97-106) 11/01/19 11:04 Carbon Dioxide 28.5 mmol/L (24-32.6) 11/01/19 11:04 Anion Gap 11.4 mmol/L (6.8-13.8) 11/01/19 11:04 BUN 19 mg/dL (6-23) 11/01/19 11:04 Creatinine 1.02 mg/dL (0.4-1.4) 11/01/19 11:04 Est GFR (Non-Af Amer) 73 mL/min (60-130) 11/01/19 11:04 BUN/Creatinine Ratio 18.6 (9.0-21.6) 11/01/19 11:04 Random Glucose 95 mg/dL (70-110) 11/01/19 11:04 Calcium 8.5 mg/dL (7.9-10.9) 11/01/19 11:04 Calcium Adj for Albumin 8.6 mg/dL (8.4-10.2) 11/01/19 11:04 Magnesium 2.0 mg/dL (1.2-2.8) 11/01/19 11:04 Total Bilirubin 0.7 mg/dL (0.0-1.1) 11/01/19 11:04 AST 38 U/L (0-48) 11/01/19 11:04 ALT 35 U/L (19-67) 11/01/19 11:04 Alkaline Phosphatase 74 U/L (50-170) 11/01/19 11:04 Troponin I 0.092 ng/mL (0.00-0.10) 11/01/19 11:04 B-Natriuretic Peptide 7746 pg/mL (5-650) H 11/01/19 11:04 Total Protein 6.9 gm/dL (6.2-8.2) 11/01/19 11:04 Albumin 3.5 gm/dl (3.4-5.0) 11/01/19 11:04 Assessment/Plan - Narrative Narrative: Patient was evaluated and medical chart was reviewed and decision to admit to our inpatient [facility] floor was made. He was admitted with a diagnosis of new onset a atrial fibrillation with rapid ventricular response, small bilateral pleural effusions, and decompensated CHF. Patient was placed on telemetry and was treated in the emergency room with multiple doses of digoxin in addition to Cardizem. Cardizem was discontinued due to precipitous drop of blood pressure, and patient was eventually started on Lopressor to be administered twice daily. At the moment his rate has improved and is fluctuating between 115 and 120, however he maintains an irregular heart rhythm very likely A. fib. Patient had an elevated d-dimer on labs and underwent a subsequent chest CTA which was negative for PE however there was an incidental finding of an aneurysmal ascending aortic dilatation as well as small bilateral pleural effusions and increased pulmonary pressure. Patient also has a brain nitrated peptide of over 7000, this makes a CHF exacerbation very likely. Echocardiogram has been ordered for tomorrow morning for evaluation of his cardiac function, structure, and EF. In the meantime we will keep the patient on telemetry and cover him with therapeutic levels of Lovenox for anticoagulation. His shortness of breath has resolved however fine crackles were heard on auscultation of his lungs, we will treat him with IV diuresis for apparent CHF. He is resting comfortably at the moment and was informed of his condition and the treatment plan. - Assessment/Plan (1) Atrial fibrillation with rapid ventricular response Problem: Acute (2) Acute exacerbation of CHF (congestive heart failure) Problem: Acute (3) Small pleural effusion Problem: Acute (4) Ascending aorta dilation Problem: Acute (5) History of bladder cancer Problem: Chronic (6) Macular degeneration Problem: Chronic Qualifiers: (7) Cataract Problem: Chronic Qualifiers:
[2019-11-01] MEDS: FUROSEMIDE 10 MG/ML VIAL IV SCH (21:53)
[2019-11-02] MEDS ORDERED: METOPROLOL TARTRATE 1 MG/ML AMPUL IV ONE ×5 (01:40→12:07)
[2019-11-02] MEDS ORDERED: ENOXAPARIN SODIUM 40 MG/0.4 ML SYRG SC SCH (02:00)
[2019-11-02] MEDS ORDERED: DIGOXIN 0.25 MG/ML AMPUL IV ONE (05:44)
[2019-11-02 06:38] LABS: Albumin * 3.3 gm/dl (3.4-5.0); Anion Gap 13.3 mmol/L (6.8-13.8); BUN/Creatinine Ratio 17.6 (9.0-21.6); Bilirubin, Total 0.9 mg/dL (0.0-1.1); Ca. Corrected For Albumin 8.9 mg/dL (8.4-10.2); Calcium * 8.7 mg/dL (7.9-10.9); Carbon Dioxide 26.4 mmol/L (24-32.6); Potassium 4.7 mmol/L (3.4-4.6); Total Protein 6.7 gm/dL (6.2-8.2)
[2019-11-02] MEDS: GABAPENTIN 300 MG CAPSULE PO SCH (08:09)
[2019-11-02] MEDS: FAMOTIDINE 20 MG TABLET PO SCH (08:09)
--- NOTE | 2019-11-02 08:28 | PN ---
Subjective - Date and Time Seen Date: 11/02/19 Time: 08:17 Subjective Narrative: Admits to SOB but better. Denies CP/palpitations. he remembers that 1-2 days before going to the ER , he was starting to get SOB. Objective - Review of Systems Generalized/Overall Review: Denies: Weakness, Chills, Fever Respiratory: Reports: Shortness of Breath, Orthopnea. Denies: Wheezing Cardiac: Denies: Chest Pain, Edema, Palpitations Abdominal: Denies: Nausea, Vomiting Genitourinary Symptoms: Denies: Urgency, Frequency Musculoskeletal Complaints: Reports: Joint Pain. Denies: Back Pain Neurological: Denies: Headache Skin: Denies: Lesions Endocrine: Denies: Intolerance to Cold, Intolerance to Heat Misc: All systems neg except as marked - Vitals Vitals: Last Vital Signs Temp 36.9 C 11/02/19 07:00 Pulse 129 H 11/02/19 08:08 Resp 18 11/02/19 07:00 BP 125/74 11/02/19 08:08 Pulse Ox 96 11/02/19 07:00 - Abnormal Lab Findings Abnormal Lab Findings: Abnormal Lab Results 11/01/19 11/01/19 11/01/19 Range/Units 11:04 11:04 11:04 RBC 4.19 L (4.7-6.0) M/mm3 MCV 103.6 H (78-100) fl MCH 34.1 H (27-31) pg Neutrophils % 78.9 H (42-75.0) % Lymphocytes % 10.6 L (20-51) % Lymphocytes # 0.55 L (1.5-3.5) k/mm3 PT 13.9 H (9.1-10.7) Seconds INR (Anticoag Therapy) 1.42 H (0.92-1.08) INR D-Dimer (0.19-0.49) ug/mL Potassium 4.9 H (3.4-4.6) mmol/L B-Natriuretic Peptide 7746 H (5-650) pg/mL Albumin (3.4-5.0) gm/dl 11/01/19 11/02/19 Range/Units 11:04 06:05 RBC (4.7-6.0) M/mm3 MCV (78-100) fl MCH (27-31) pg Neutrophils % (42-75.0) % Lymphocytes % (20-51) % Lymphocytes # (1.5-3.5) k/mm3 PT (9.1-10.7) Seconds INR (Anticoag Therapy) (0.92-1.08) INR D-Dimer 1.26 H (0.19-0.49) ug/mL Potassium 4.7 H (3.4-4.6) mmol/L B-Natriuretic Peptide (5-650) pg/mL Albumin 3.3 L (3.4-5.0) gm/dl - Exam Constitutional: Present: Alert, Oriented x3, Cooperative, Elderly, Thin and frail ENT Exam: Present: hard of hearing Neck: Present: supple. Absent: lymphadenopathy (R), lymphadenopathy (L) Respiratory: Present: decreased breath sounds, rales, No wheezing Cardiovascular/Chest: Present: JVD, systolic murmur, irregularly irregular Abdomen: Present: Normal bowel sounds, soft, nontender, nondistended Extremity: Present: no calf tenderness, pedal edema Assessment/Plan Plan Narrative: Cecy Bro is an 89-year-old white male admitted for shortness of breath on exertion was found to be atrial fibrillation with a rapid ventricular response, new onset. He was given IV Cardizem but his blood pressure bottomed down and so he was started on metoprolol twice daily. His heart rate continued to be in the 120s 130s and he was given IV digoxin. He is chest x-ray showed pleural effusion and his BNP was elevated. He was also started on IV diuresis for acute CHF exacerbation. I discussed management of atrial fibrillation with Waynerate control versus rhythm control. We also discussed about Coumadin and the newer oral anticoagulation. We will start him on Eliquis 2.5 mg p.o. twice daily and discontinue his enoxaparin. I am going to add amiodarone loading dose orally and increase his metoprolol to 100 p.o. twice daily. He is currently asymptomatic and hemodynamically stable. If we are going to electrocardioverted him it will be on an elective basis and he will need anticoagulation for at least 4 weeks as it looks his s/sx started more than 48 hours ago unless patient becomes hemodynamically unstable. I also told him about his ascending aortic aneurysm which was also seen on his echo in 07/2019 (4 cm) which can be managed conservatively. ADDENDUM: I talked to the later on , Marielena, in my office and told her what I told Cam and she is understands and agrees with the management. - Problems/Diagnosis (1) Atrial fibrillation with rapid ventricular response Problem: Acute (2) Acute exacerbation of CHF (congestive heart failure) Problem: Acute Qualifiers: Heart failure type: combined systolic and diastolic Qualified Code(s): I50.43 - Acute on chronic combined systolic (congestive) and diastolic (congestive) heart failure (3) Ascending aorta dilation Problem: Chronic (4) BPH (benign prostatic hyperplasia) Problem: Chronic Qualifiers: Lower urinary tract symptom presence: symptoms absent Qualified Code(s): N40.0 - Benign prostatic hyperplasia without lower urinary tract symptoms (5) Small pleural effusion Problem: Acute (6) History of bladder cancer Problem: Chronic (7) Hyperlipidemia Problem: Chronic Qualifiers: Hyperlipidemia type: pure hypercholesterolemia Qualified Code(s): E78.00 - Pure hypercholesterolemia, unspecified; E78.0 - Pure hypercholesterolemia (8) TIA (transient ischemic attack) Problem: Resolved
[2019-11-02] MEDS ORDERED: METOPROLOL TARTRATE 100 MG TABLET PO SCH (09:00)
[2019-11-02] MEDS ORDERED: GABAPENTIN 600 MG TABLET PO SCH (09:00)
[2019-11-02] MEDS ORDERED: ASPIRIN 81 MG TABLET.DR PO SCH (09:00)
[2019-11-02] MEDS ORDERED: ENOXAPARIN SODIUM 60 MG/0.6 ML SYRG SC SCH (10:00)
[2019-11-02] MEDS: APIXABAN 2.5 MG TABLET PO SCH ×2 (10:06→20:02)
[2019-11-02] MEDS: AMIODARONE HCL 200 MG TABLET PO SCH ×2 (10:06→20:02)
[2019-11-02] MEDS: FUROSEMIDE 10 MG/ML VIAL IV SCH (11:05)
[2019-11-02] MEDS ORDERED: SIMVASTATIN 40 MG TABLET PO SCH (17:00)
[2019-11-02] MEDS: SIMVASTATIN 20 MG TABLET PO SCH (17:09)
[2019-11-02] MEDS: METOPROLOL TARTRATE 100 MG, METOPROLOL TARTRATE 50 MG PO SCH ×2 (20:00)
[2019-11-02] MEDS ORDERED: METOPROLOL TARTRATE 50 MG TABLET ONE (20:01)
[2019-11-02] MEDS ORDERED: METOPROLOL TARTRATE 50 MG TABLET PO SCH (21:00)
[2019-11-02] MEDS: DIGOXIN 0.25 MG/ML AMPUL IV SCH (22:02)
[2019-11-03] MEDS: DIGOXIN 0.25 MG/ML AMPUL IV SCH ×3 (02:39→15:27)
--- NOTE | 2019-11-03 08:26 | PN ---
Subjective - Date and Time Seen Date: 11/03/19 Time: 08:26 Subjective Narrative: Denies chest pain, shortness of breath, palpitations. Asking when he is going home. Heart rate continues to be in the upper 90s to max of 120. Objective - Review of Systems Generalized/Overall Review: Reports: Weakness. Denies: Chills, Fever EENTM: Denies: Blurred Vision Respiratory: Reports: Shortness of Breath. Denies: Cough, Orthopnea Cardiac: Reports: Edema. Denies: Chest Pain, Palpitations Abdominal: Denies: Nausea, Vomiting Genitourinary Symptoms: Denies: Urgency, Frequency Musculoskeletal Complaints: Reports: Joint Pain Neurological: Reports: Headache Skin: Denies: Lesions, Rash Misc: All systems neg except as marked - Vitals Vitals: Last Vital Signs Temp 36.5 C 11/03/19 06:22 Pulse 113 H 11/03/19 06:22 Resp 20 11/03/19 06:22 BP 139/79 11/03/19 06:22 Pulse Ox 97 11/03/19 06:26 - Exam Constitutional: Present: Alert, Oriented x3, Cooperative, Elderly, Thin and frail ENT Exam: Present: hard of hearing Neck: Present: supple. Absent: lymphadenopathy (R), lymphadenopathy (L) Respiratory: Present: decreased breath sounds, No rales, No wheezing Cardiovascular/Chest: Present: no JVD, systolic murmur, irregularly irregular Abdomen: Present: Normal bowel sounds, soft, nontender, nondistended Extremity: Present: calf tenderness, pedal edema, other - swollen right knee Assessment/Plan Plan Narrative: Cam has new onset atrial fibrillation and his heart rate is still running in the upper 90s to 110s max of 120. He is a symptomatic and hemodynamically stable. He is on 150 mg twice daily of metoprolol tartrate now, amiodarone 400 mg p.o. twice daily and IV digoxin. We will put him on daily oral digoxin after his loading dose. Because of cost we will change his Eliquis to Lovenox and Coumadin. He had a pause on his telemetry of 2.1 seconds last night. will try to talk to cardiology. - Problems/Diagnosis (1) Atrial fibrillation with rapid ventricular response Problem: Acute (2) Acute exacerbation of CHF (congestive heart failure) Problem: Acute Qualifiers: Heart failure type: combined systolic and diastolic Qualified Code(s): I50.43 - Acute on chronic combined systolic (congestive) and diastolic (congestive) heart failure (3) Ascending aorta dilation Problem: Chronic (4) BPH (benign prostatic hyperplasia) Problem: Chronic Qualifiers: Lower urinary tract symptom presence: symptoms absent Qualified Code(s): N40.0 - Benign prostatic hyperplasia without lower urinary tract symptoms (5) Small pleural effusion Problem: Acute (6) History of bladder cancer Problem: Chronic (7) Hyperlipidemia Problem: Chronic Qualifiers: Hyperlipidemia type: pure hypercholesterolemia Qualified Code(s): E78.00 - Pure hypercholesterolemia, unspecified; E78.0 - Pure hypercholesterolemia
[2019-11-03] MEDS: ENOXAPARIN SODIUM 60 MG/0.6 ML SYRG SC SCH ×2 (10:44→20:57)
[2019-11-03] MEDS: GABAPENTIN 300 MG CAPSULE PO SCH (10:45)
[2019-11-03] MEDS: FAMOTIDINE 20 MG TABLET PO SCH (10:46)
[2019-11-03] MEDS: FUROSEMIDE 10 MG/ML VIAL IV SCH (10:58)
[2019-11-03] MEDS: METOPROLOL TARTRATE 100 MG, METOPROLOL TARTRATE 50 MG PO SCH ×4 (10:59→20:57)
[2019-11-03] MEDS ORDERED: NORMAL SALINE 250 ML IV ONE (11:00)
[2019-11-03] MEDS: AMIODARONE HCL 200 MG TABLET PO SCH (11:19)
--- NOTE | 2019-11-03 13:26 | PN ---
Progess Note - Interim Date: 11/03/19 Time: 13:21 Narrative: 11/03/19 13:[address] Combs, [facility] shed hand- he is not worried about pauses of 2.1 seconds especially if nocturnal. if it goes to to the 5's then he might worry about SSS and may need to be referred for pacemaker. would check digoxin level but if BP is an issue may continue with 0.125 PO QD. would also recommend going down on his amiodarone to 200 mg PO q daily for now as he is not fully anticoagualted. if HR is not controlled , recommend transfer for DANETTE and electrocardioversion especially if he beomes symptomatic.
[2019-11-03 14:06] LABS: Digoxin 1.8 ng/mL (0.5-2.0)
[2019-11-03] MEDS: SIMVASTATIN 20 MG TABLET PO SCH (17:25)
[2019-11-03] MEDS: WARFARIN SODIUM 5 MG TABLET PO SCH (17:25)
[2019-11-04 06:27] LABS: Hemoglobin 15.6 gm/dL (13.5-18.0); Mean Cell Volume 101.3 fl (78-100); Mean Corpuscular Hemoglobin 33.6 pg (27-31); Mean Corpuscular Hgb Conc 33.2 g/dl (32-36); Mean Platelet Volume 8.8 fl (8-11.3); Neutrophil # 3.2 K/mm3 (1.3-6.0); Neutrophil % 70.5 % (42-75.0); Platelet Count 231 K/mm3 (150-450); Red Blood Count 4.64 M/mm3 (4.7-6.0); Red Cell Distribution Width 12.3 % (11.5-14.0); White Blood Count 4.5 K/mm3 (4.0-10.5)
[2019-11-04 06:36] LABS: Prothrombin Time (Patient) 15.4 Seconds (9.1-10.7)
[2019-11-04 06:44] LABS: INR 1.58 INR (0.92-1.08)
[2019-11-04 06:47] LABS: Anion Gap 8.2 mmol/L (6.8-13.8); BUN/Creatinine Ratio 17.5 (9.0-21.6); Calcium * 8.6 mg/dL (7.9-10.9); Carbon Dioxide 30.3 mmol/L (24-32.6); Estimated Creat Clear 41.2; Potassium 4.5 mmol/L (3.4-4.6)
[2019-11-04] MEDS: GABAPENTIN 300 MG CAPSULE PO SCH (08:24)
[2019-11-04] MEDS: ENOXAPARIN SODIUM 60 MG/0.6 ML SYRG SC SCH ×2 (08:25→21:05)
[2019-11-04] MEDS: FAMOTIDINE 20 MG TABLET PO SCH (08:25)
--- NOTE | 2019-11-04 08:29 | PN ---
Subjective - Date and Time Seen Date: 11/04/19 Time: 08:27 Subjective Narrative: Admits SOB feels better. Admits to constipation which was resolved on prune juice. Asking when he is going home. Denies CP/palpitations. had pauses of 1.5 t0 2.1 secs yesterday. Objective - Review of Systems Generalized/Overall Review: Denies: Chills, Fever EENTM: Reports: Blurred Vision Respiratory: Denies: Cough, Shortness of Breath Cardiac: Denies: Chest Pain, Palpitations Abdominal: Reports: Constipation. Denies: Nausea, Vomiting Genitourinary Symptoms: Denies: Urgency, Frequency Musculoskeletal Complaints: Denies: Joint Pain Neurological: Denies: Headache Skin: Denies: Lesions - Vitals Vitals: Last Vital Signs Temp 36.4 C 11/04/19 08:04 Pulse 123 H 11/04/19 08:04 Resp 18 11/04/19 08:04 BP 104/68 11/04/19 08:04 Pulse Ox 100 11/04/19 08:04 - Abnormal Lab Findings Abnormal Lab Findings: Abnormal Lab Results 11/04/19 11/04/19 11/04/19 Range/Units 06:15 06:15 06:15 RBC 4.64 L (4.7-6.0) M/mm3 MCV 101.3 H (78-100) fl MCH 33.6 H (27-31) pg Lymphocytes % 15.0 L (20-51) % Monocytes % 12.1 H (0.0-9) % Lymphocytes # 0.68 L (1.5-3.5) k/mm3 PT 15.4 H (9.1-10.7) Seconds INR (Anticoag Therapy) 1.58 H (0.92-1.08) INR B-Natriuretic Peptide 09953 H (5-650) pg/mL - Exam Constitutional: Present: Alert, Oriented x3, Cooperative, No distress, Elderly, Thin and frail ENT Exam: Present: hard of hearing Neck: Present: non-tender, normal inspection Respiratory: Present: normal breath sounds, no respiratory distress, no a ccessory muscle use. Absent: No wheezing Cardiovascular/Chest: Present: tachycardia, systolic murmur, irregularly irregular Abdomen: Present: Normal bowel sounds, soft, nontender, nondistended, no rebound tenderness Extremity: Present: normal inspection, no pedal edema Skin Exam: Present: normal color Lymphatic: Present: no adenopathy Appearance: Present: appropriate appearance Eye contact: Present: cooperative, good eye contact, normal speech Thoughts: Present: normal thought pattern Assessment/Plan Plan Narrative: After consulting with [facility] cardiology, he was not worried with the pauses of 2.1 seconds. If it is in the kellee 3-5 seconds , then will need to consider SSS ( tachy-avinash syndrome) and transfer for pacemaker. If HR continues to be u ncontrolled especially if becomes symptomatic, may need transfer for DANETTE and cardioversion. His recommendations- metoprolol was changed from 150 mg BID to 100 mg TID to better stabilize his BP, decrease Amiodarone to 200 mg PO q daily, continue with digoxin at o.125 mg PO q daily if BP continues to be issue. If pauses gets worst, digoxin will the first drug to be stopped. His HR are getting better - 90-110 mostly. - Problems/Diagnosis (1) Atrial fibrillation with rapid ventricular response Problem: Acute (2) Acute exacerbation of CHF (congestive heart failure) Problem: Acute Qualifiers: Heart failure type: combined systolic and diastolic Qualified Code(s): I50.43 - Acute on chronic combined systolic (congestive) and diastolic (congestive) heart failure (3) Ascending aorta dilation Problem: Chronic (4) BPH (benign prostatic hyperplasia) Problem: Chronic Qualifiers: Lower urinary tract symptom presence: symptoms absent Qualified Code(s): N40.0 - Benign prostatic hyperplasia without lower urinary tract symptoms (5) Small pleural effusion Problem: Acute (6) History of bladder cancer Problem: Chronic (7) Hyperlipidemia Problem: Chronic Qualifiers: Hyperlipidemia type: pure hypercholesterolemia Qualified Code(s): E78.00 - Pure hypercholesterolemia, unspecified; E78.0 - Pure hypercholesterolemia (8) Constipation Problem: Resolved (9) History of TIA (transient ischemic attack) Problem: Resolved
[2019-11-04] MEDS: FUROSEMIDE 10 MG/ML VIAL IV SCH ×2 (08:32→10:37)
[2019-11-04] MEDS: METOPROLOL TARTRATE 100 MG, METOPROLOL TARTRATE 50 MG PO SCH ×2 (08:33)
[2019-11-04] MEDS: METOPROLOL TARTRATE 100 MG TABLET PO SCH ×3 (08:36→23:46)
[2019-11-04] MEDS ORDERED: AMIODARONE HCL 200 MG TABLET PO SCH (09:00)
[2019-11-04] MEDS ORDERED: DIGOXIN 0.125 MG TABLET PO SCH (09:00)
--- NOTE | 2019-11-04 13:03 | PN ---
Progess Note - Interim Date: 11/04/19 Time: 13:01 Narrative: 11/04/19 13:01 PAtient head brief episodes of pause of 2 -2.8 secs, asymptomatic with HR going down to 30 BPM- 60 BPM on telemeytry, asymptomatic. Will hold 2 pm Metoprolol and will d/c digoxin. HR now in the 70's-105.
--- NOTE | 2019-11-04 14:29 | PN ---
Paco Note - Interim Date: 11/04/19 Time: 14:22 Narrative: 11/04/19 14:22 patient noted to be back to bradycardia of 30's-50's. tanika patient was a little bit confused. 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 HR in the 30-s - 70's. BP in the systolic 90's. Metopprolol on hold , digoxin stopped. next metoprolol dose is at [place]. will likely hold that too. will get dig level again and a 12 lead EKG. K this a.m was 4.5. we have the transcutaneous pacer is near by. if he continues to be bradycardic, will likely give him atropine. might even start a dopamine drip to raise BP and HR at the cardiac dose. he denies light headedness, CP, SOB, palpitations.
--- NOTE | 2019-11-04 16:30 | PN ---
Progess Note - Interim Date: 11/04/19 Time: 16:27 Narrative: 11/04/19 16:27 HR has been in the 70's for some time. Dig level WNL. EKG earlier showe AFib with slow ventricular response, Incomplete RBB, LAFB, anterior myocardial infarction, indeterminate age, probable lateral ischemia. Troponin WNL. will continue to monitor. informed to call me tonight before next metoprolol dose.
[2019-11-04] MEDS: SIMVASTATIN 20 MG TABLET PO SCH (17:15)
[2019-11-04] MEDS: WARFARIN SODIUM 5 MG TABLET PO SCH (17:15)
[2019-11-05] MEDS: METOPROLOL TARTRATE 100 MG TABLET PO SCH ×4 (00:50→19:51)
[2019-11-05 06:37] LABS: Prothrombin Time (Patient) 30.4 Seconds (9.1-10.7)
[2019-11-05 06:41] LABS: INR 3.21 INR (0.92-1.08)
[2019-11-05] MEDS ORDERED: METOPROLOL TARTRATE 100 MG TABLET PO SCH (08:30)
--- NOTE | 2019-11-05 08:33 | PN ---
Subjective - Date and Time Seen Date: 11/05/19 Time: 08:25 Subjective Narrative: patient had unequal pupils, left bigger than right, sluggishly reactive to light. 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 Objective - Review of Systems Generalized/Overall Review: Denies: Weakness, Chills, Fever EENTM: Reports: Blurred Vision Respiratory: Denies: Cough, Shortness of Breath, Orthopnea Cardiac: Denies: Chest Pain, Edema, Palpitations Abdominal: Denies: Nausea, Vomiting Genitourinary Symptoms: Denies: Urgency, Frequency Musculoskeletal Complaints: Denies: Joint Pain Neurological: Reports: Depressed, Other - anisocoria Misc: All systems neg except as marked - Vitals Vitals: Last Vital Signs Temp 36.4 C 11/05/19 07:50 Pulse 77 11/05/19 07:50 Resp 16 11/05/19 07:50 BP 105/59 11/05/19 07:50 Pulse Ox 97 11/05/19 07:50 - Abnormal Lab Findings Abnormal Lab Findings: Abnormal Lab Results 11/05/19 Range/Units 06:00 PT 30.4 H (9.1-10.7) Seconds INR (Anticoag Therapy) 3.21 H (0.92-1.08) INR - Exam Constitutional: Present: Alert, Oriented x3, Cooperative, Elderly, Thin and frail ENT Exam: Present: hard of hearing Neck: Present: supple. Absent: lymphadenopathy (R), lymphadenopathy (L) Respiratory: Present: decreased breath sounds. Absent: No rales, No wheezing Cardiovascular/Chest: Absent: irregularly irregular Abdomen: Present: Normal bowel sounds, soft, nontender, no masses Extremity: Present: no calf tenderness, pedal edema Assessment/Plan Plan Narrative: Cam Bro is an 89-year-old white male who was bradycardic in the 30s to 50s yesterday but asymptomatic. He is running in the 70s today. We have stopped his digoxin and his amiodarone and we are now continuing back on his metoprolol at 100 mg p.o. 3 times daily. He had some confusion yesterday and I head CT scan was done which showed no acute intracranial findings except for chronic microvascular ischemic changes and atrophy unchanged from prior study. The rn shift mgr however noted that he had an unequal pupil and an MRI done this morning showed an acute left parietal lobe infarct. No bleed. His INR is 3.21. This will be put on hold for today. We will repeat an echocardiogram to see if there is any cardiac thrombus. His prior echo showed negative bubble study and will defer from repeating that. We will also do a carotid ultrasound. We will repeat refer patient to PT/OT. The patient is not dysarthric or aphasic, does not choke or cough with food or fluid intake and will hold speech therapy evaluation for now . If his heart rate continues to be in the 70s and he does not become bradycardic or tachycardic possible discharge tomorrow on rate control and anticoagulation and will make an appointment with cardiology on an outpatient basis. - Problems/Diagnosis (1) Acute cerebrovascular accident (CVA) Problem: Acute Narrative: left par[place] lobe (2) Atrial fibrillation with rapid ventricular response Problem: Acute (3) Acute exacerbation of CHF (congestive heart failure) Problem: Acute Qualifiers: Heart failure type: combined systolic and diastolic Qualified Code(s): I50.43 - Acute on chronic combined systolic (congestive) and diastolic (congestive) heart failure (4) Ascending aorta dilation Problem: Chronic (5) BPH (benign prostatic hyperplasia) Problem: Chronic Qualifiers: Lower urinary tract symptom presence: symptoms absent Qualified Code(s): N40.0 - Benign prostatic hyperplasia without lower urinary tract symptoms (6) Small pleural effusion Problem: Acute (7) History of bladder cancer Problem: Chronic (8) Hyperlipidemia Problem: Chronic Qualifiers: Hyperlipidemia type: pure hypercholesterolemia Qualified Code(s): E78.00 - Pure hypercholesterolemia, unspecified; E78.0 - Pure hypercholesterolemia (9) Constipation Problem: Resolved (10) History of TIA (transient ischemic attack) Problem: Resolved
[2019-11-05] MEDS: GABAPENTIN 300 MG CAPSULE PO SCH (08:47)
[2019-11-05] MEDS: FAMOTIDINE 20 MG TABLET PO SCH (08:47)
[2019-11-05] MEDS: FUROSEMIDE 10 MG/ML VIAL IV SCH (09:41)
[2019-11-05] MEDS: ENOXAPARIN SODIUM 60 MG/0.6 ML SYRG SC SCH ×2 (09:41→21:01)
[2019-11-05] MEDS ORDERED: METOPROLOL TARTRATE 50 MG TABLET PO ONE ×2 (13:00→20:30)
[2019-11-05] MEDS: SIMVASTATIN 20 MG TABLET PO SCH (16:12)
[2019-11-05] MEDS ORDERED: NORMAL SALINE 250 ML IV ONE (20:00)
[2019-11-06] MEDS ORDERED: METOPROLOL TARTRATE 50 MG TABLET PO ONE (07:17)
[2019-11-06] MEDS: METOPROLOL TARTRATE 100 MG TABLET PO SCH (07:18)
[2019-11-06 07:33] LABS: Prothrombin Time (Patient) 38.7 Seconds (9.1-10.7)
[2019-11-06 07:37] LABS: INR 4.13 INR (0.92-1.08)
[2019-11-06] MEDS: FAMOTIDINE 20 MG TABLET PO SCH (08:39)
[2019-11-06] MEDS: GABAPENTIN 300 MG CAPSULE PO SCH (08:39)
[2019-11-06] MEDS ORDERED: FUROSEMIDE 20 MG TABLET PO SCH (09:00)
--- NOTE | 2019-11-06 09:48 | DS ---
(1) Acute cerebrovascular accident (CVA) Problem: Acute (2) Atrial fibrillation with rapid ventricular response Problem: Acute (3) Acute exacerbation of CHF (congestive heart failure) Problem: Acute Qualifiers: Heart failure type: combined systolic and diastolic Qualified Code(s): I50.43 - Acute on chronic combined systolic (congestive) and diastolic (congestive) heart failure (4) Ascending aorta dilation Problem: Chronic (5) BPH (benign prostatic hyperplasia) Problem: Chronic Qualifiers: Lower urinary tract symptom presence: symptoms absent Qualified Code(s): N40.0 - Benign prostatic hyperplasia without lower urinary tract symptoms (6) Small pleural effusion Problem: Acute (7) History of bladder cancer Problem: Chronic (8) Hyperlipidemia Problem: Chronic Qualifiers: Hyperlipidemia type: pure hypercholesterolemia Qualified Code(s): E78.00 - Pure hypercholesterolemia, unspecified; E78.0 - Pure hypercholesterolemia (9) Constipation Problem: Resolved (10) History of TIA (transient ischemic attack) Problem: Resolved Date of Discharge:: 11/06/19 Hospital Course: Cam Ko is an 89-year-old male with past medical history of BPH, bladder cancer, hyperlipidemia, chronic back pain, and recent cataract surgery from 2 weeks ago was admitted on 11/01/2019 due to sudden onset of severe shortness of breath on mild exertion on the morning of admission. He does remember that he has been getting SOB 2 days [employer]ILOT CONTR[employer]. 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 He became alarmed when his symptoms did not subside and went home and told his about the events that occurred. Patient reports that he occasionally gets short of breath but he always thought that it was because he was old and out of shape. However he said this episode was very different from the previous and was sudden and gradually worsening. His brought him to the ER for evaluation where he was found to have a new onset atrial fibrillation on EKG. He subsequently underwent an echo which showed normal EF, diastolic dysfunction, mild MV, TV, AV regurgitations. He denied any chest pain, dizziness, or palpitations. He was given Cardizem and his BP bottomed down. He was started on Metoprolol tartrate 50 mg p.o. twice daily but his heart rate continued to be in the 120s to 140s. He was given IV loading dose of digoxin. His rapid ventricular rate did not improve. Amiodarone 400 mg p.o. twice daily was added and his metoprolol increased to 100 twice a day. His heart rate went into the upper 90s to 120s. He started to have some pulses of 2 to 2.1 seconds. His case was discussed with cardiology from [facility] and he recommended going down on the amiodarone to 200 mg twice a day, changing his metoprolol to every 8 hours instead of every 12 hours, if his blood pressure continues to be an issue to continue with the oral digoxin at 0.125 mg p.o. daily. He said he was not very concerned about his pulses of 2-2.1 but if it gets into the 3 to 5 seconds he might consider transferring him for possible sick sinus syndrome and pacemaker placement. If he continues to be with rapid ventricular rate and become symptomatic he may need to be transferred to also for DANETTE and cardioversion. His digoxin and amiodarone were discontinued but because despite reducing the doses he continued to have puases int he 2.8 seconds. The patient also started having some confusion and had CT scan done initially showed no acute intracranial process. He was noted to have an unequal pupils and an MRI done showed that he had an acute CVA of his left parietal lobe. He is on Coumadin and is therapeutic. He was referred to physical therapy/Occupational Therapy and he is stable to be discharged but will order for a 48-hour Holter monitor. I will see him back in the office on Saturday, we will schedule him a cardiology consult on an outpatient basis. Procedures Performed: none Results and Findings: Pending Mircobiology Results 11/01/19 11:15 Blood Blood Culture - Preliminary NO GROWTH AFTER 48 HOURS 11/01/19 11:04 Blood Blood Culture - Preliminary NO GROWTH AFTER 48 HOURS Lab Pending Results 11/01/19 11:04: WBC 5.2, RBC 4.19 L, Hgb 14.3, Hct 43.4, MCV 103.6 H, MCH 34.1 H, MCHC 32.9, RDW 12.9, Plt Count 233, MPV 8.9, Immature Gran % (Auto) 0.20, Immature Gran # (Auto) 0.01, Neutrophils % 78.9 H, Lymphocytes % 10.6 L, Monocytes % 8.7, Eosinophils % 0.8, Basophils % 0.8, Nucleated RBC % 0.0, Neutrophils # 4.1, Lymphocytes # 0.55 L, Monocytes # 0.5, Eosinophils # 0.0, Absolute Basophils 0.0 11/01/19 11:04: PT 13.9 H, INR (Anticoag Therapy) 1.42 H, PTT (Screven) 24.4 11/01/19 11:04: Sodium 140, Plasma Sodium 140, Potassium 4.9 H, Chloride 105, Carbon Dioxide 28.5, Anion Gap 11.4, BUN 19, Creatinine 1.02, Est GFR (Non-Af Amer) 73, BUN/Creatinine Ratio 18.6, Random Glucose 95, Calcium 8.5, Calcium Adj for Albumin 8.6, Magnesium 2.0, Total Bilirubin 0.7, AST 38, ALT 35, Alkaline Phosphatase 74, Troponin I 0.092, B-Natriuretic Peptide 7746 H, Total Protein 6.9, Albumin 3.5 11/01/19 11:04: D-Dimer 1.26 H 11/02/19 06:05: Sodium 139, Plasma Sodium 139, Potassium 4.7 H, Chloride 104, Carbon Dioxide 26.4, Anion Gap 13.3, BUN 18, Creatinine 1.02, Est GFR (Non-Af Amer) 73, BUN/Creatinine Ratio 17.6, Random Glucose 107, Calcium 8.7, Calcium Adj for Albumin 8.9, Total Bilirubin 0.9, AST 35, ALT 28, Alkaline Phosphatase 72, Total Protein 6.7, Albumin 3.3 L 11/03/19 09:06: ESR 8 11/03/19 09:06: TSH (Reflex) 0.851, Digoxin 1.8 11/04/19 06:15: WBC 4.5, RBC 4.64 L, Hgb 15.6, Hct 47.0, MCV 101.3 H, MCH 33.6 H, MCHC 33.2, RDW 12.3, Plt Count 231, MPV 8.8, Immature Gran % (Auto) 0.20, Immature Gran # (Auto) 0.01, Neutrophils % 70.5, Lymphocytes % 15.0 L, Monocytes % 12.1 H, Eosinophils % 1.3, Basophils % 0.9, Nucleated RBC % 0.0, Neutrophils # 3.2, Lymphocytes # 0.68 L, Monocytes # 0.6, Eosinophils # 0.1, Absolute Basophils 0.0 11/04/19 06:15: Sodium 138, Plasma Sodium 138, Potassium 4.5, Chloride 104, Carbon Dioxide 30.3, Anion Gap 8.2, BUN 20, Creatinine 1.14, Est GFR (Non-Af Amer) 65, BUN/Creatinine Ratio 17.5, Random Glucose 104, Calcium 8.6, B-Natriur etic Peptide 18374 H 11/04/19 06:15: PT 15.4 H, INR (Anticoag Therapy) 1.58 H 11/04/19 14:49: Digoxin 1.9 11/04/19 14:49: Troponin I 0.098 11/05/19 06:00: PT 30.4 H, INR (Anticoag Therapy) 3.21 H 11/05/19 06:00: ESR 8 11/05/19 06:00: C-Reactive Prot, Quant Less than 0.2 11/06/19 07:15: PT 38.7 H, INR (Anticoag Therapy) 4.13 H* Discharge Location: Home Disposition: Home self-care Condition: Fair Discharge Activity: Activity as tolerated Discharge Diet: Low salt Referrals: María Elena Amato MD [Primary Care Provider] - Additional Patient Instructions (free text): Follow up with me on Saturday. Please schedule a cardiology consult on outpatient basis- AFib, CHF. Prescriptions (Any new or edited meds): Furosemide [Lasix] 10 mg PO DAILY #30 tab Transmission Status: Pending to [place], [place] Metoprolol Tartrate 50 mg PO BID #60 tab Transmission Status: Pending to [place], [place] Acetaminophen [Tylenol] 650 mg PO Q6H PRN #30 tab PRN Reason: Mild Pain (Pain Scale 1-3) Transmission Status: Pending to [place], [place] Complete Home Medications List: Complete Home Medication List: vitamins A,C,[id number]-[id number]-vxmlde 7,160 unit-113 mg-100 unit tablet 1 tab PO DAILY tab 08/07/18 Gabapentin [Neurontin] 300 mg PO DAILY 07/28/19 Durable Medical Equipment See Rx Instructions .ROUTE .MEDSUPPLY #12 ea 08/10/19 simvastatin 40 mg tablet 40 mg PO QPM #90 tab 10/05/19 Acetaminophen [Tylenol] 650 mg PO Q6H PRN #30 tab 11/06/19 Famotidine [Pepcid] 20 mg PO DAILY tab 11/06/19 Furosemide [Lasix] 10 mg PO DAILY #30 tab 11/06/19 Metoprolol Tartrate 50 mg PO BID #60 tab 11/06/19 Amb Orders for Discharge: Prothrombin Time Time Frame: 11/09/19, Facility: [facility], Location: Laboratory Holter Monitor 48 Hour Time Frame: 11/07/19, Facility: [facility], Location: Respiratory Therapy
[2019-11-06 12:44] VITALS: BP 100/58
[2019-11-07] MEDS ORDERED: WARFARIN SODIUM 1 TAB TAB PO SCH (17:00)
--- NOTE | 2019-11-10 07:33 | ECHO ---
This report is available in the EMR
== END 2019-11-06 12:48 | disposition home or self-care (01) | DRG 308 ==
LOC: MS 10:40 → ER 10:40 → MS 14:45
PROVIDERS: ADMIT Family Medicine; ATTEND Internal Medicine
DX: I50.43 Acute on chronic combined systolic (congestive) and diastolic (congestive) heart failure; N40.0 Benign prostatic hyperplasia without lower urinary tract symptoms; Z85.51 Personal history of malignant neoplasm of bladder; I48.20 Chronic atrial fibrillation, unspecified; I63.9 Cerebral infarction, unspecified; H35.30 Unspecified macular degeneration; E78.00 Pure hypercholesterolemia, unspecified; Z87.891 Personal history of nicotine dependence; J90 Pleural effusion, not elsewhere classified; K59.00 Constipation, unspecified; I77.819 Aortic ectasia, unspecified site
CPT/HCPCS: 36415; 70450; 70553; 71010; 71045; 71275; 80048; 80053; 80162; 80299; 83519; 83735; 83880; 84443; 84484; 85025; 85379; 85610; 85652; 85730; 86140; 87040; 93005; 93306; 93880; 94760; 96374; 96375; 96376; 97116; 97161; 97165; 99291; A9576; G0378; Q9967

== ENCOUNTER 2020-02-10 07:28 | Inpatient (IN) ==
[2020-02-10 08:10] LABS: Hemoglobin 13.3 gm/dL (13.5-18.0); Mean Cell Volume 104.2 fl (78-100); Mean Corpuscular Hemoglobin 34.6 pg (27-31); Mean Corpuscular Hgb Conc 33.3 g/dl (32-36); Mean Platelet Volume 9.3 fl (8-11.3); Neutrophil # 6.7 K/mm3 (1.3-6.0); Neutrophil % 90.7 % (42-75.0); Platelet Count 205 K/mm3 (150-450); Red Blood Count 3.84 M/mm3 (4.7-6.0); Red Cell Distribution Width 15.3 % (11.5-14.0); White Blood Count 7.3 K/mm3 (4.0-10.5)
--- NOTE | 2020-02-10 08:13 | ERNOTE ---
Dyspnea - General Presenting Symptoms: shortness of breath Time Seen by Provider: 02/10/20 07:58 Source: patient, family Exam Limitations: hard of hearing, dementia - Immun/Allergies/Home Medications Immunizations: IMMUNIZATION HX Immunizations Up to Date Yes History of Influenza Vaccine Yes Hx Pneumococcal Vaccination Yes Allergies/Adverse Reactions: Allergies No Known Allergies Allergy (Verified 11/25/19 09:55) Home Medications: HOME MEDICATIONS vitamins A,C,M-lcqp-aehtpi 7,160 unit-113 mg-100 unit tablet 1 tab PO DAILY tab 08/07/18 [Last Taken 10/25/19] Durable Medical Equipment See Rx Instructions .ROUTE .MEDSUPPLY #12 ea 08/10/19 [Last Taken Unknown] Acetaminophen [Tylenol] 650 mg PO Q6H PRN #30 tab 11/06/19 [Last Taken Unknown] Famotidine [Pepcid] 20 mg PO DAILY tab 11/06/19 [Last Taken Unknown] atorvastatin 20 mg tablet 20 mg PO DAILY #30 tab 12/16/19 [Last Taken Unknown] Furosemide 20 mg PO DAILY 02/10/20 [Last Taken Unknown] Metoprolol Tartrate [Lopressor] 25 mg PO BID 02/10/20 [Last Taken Unknown] Warfarin Sodium [Coumadin] 1 mg PO DAILY 02/10/20 [Last Taken Unknown] - History of Present Illness Narrative: Patient has a history of CHF and afib. According to his he has been in afib since the beginning of december, is on medication for rate control. 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 Denies: chest pain/discom fort Prior Treatment: Reports: previous episodes. Denies: recently seen, currently on antibiotics Review of Systems - Review of Systems Constitutional: Present: chills, malaise. 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 Horn with [facility] Encounter for central line placement Onset Date: ~12/07/10 [facility] right subclavian central venous line H/O barium enema Onset Date: ~10/03/11 [facility]; scattered diverticular disease no masses H/O exploratory laparotomy Onset Date: ~12/22/10 [facility] repair of small bowel obstruction H/O total cystectomy Onset Date: ~12/07/10 Dr. Ilan Everett History of flexible sigmoidoscopy Onset Date: ~02/05/02 Dr. Angel Chiang MD Normal redundant colon History of genitourinary surgery Onset Date: ~12/07/10 ileal coduit urinary diversion. Dr. Ilan Everett [facility] History of radical prostatectomy Onset Date: ~12/07/10 Dr. Ilan Everett Hx of lithotripsy Onset Date: Unknown x3 Family History: Family History (Last Reviewed 02/10/20 @ 08:08 by Sania Felder RN) Father , unknown age; "old age" No problems noted. Mother , unknown age Diabetes Arthritis Brother Myocardial infarction Son Alive and well Son Alive and well Social History: (Last Reviewed 02/10/20 @ 08:08 by Sania Felder RN) Social History: adopted: No Marital status: lives independently: Yes household members: spouse number of children: 2 current occupational status: retired Previous occupational history: [employer] Highest education level completed: high school graduate Service: Yes Tobacco: Smoking Status: Former smoker Alcohol: alcohol intake: never Substance Use: substance use type: unknown Dietary Habits: caffeine: Yes Physical Exam - Physical Exam General Appearance: Present: wd/wn, alert, no apparent distress Head Exam: Present: normal inspection Eye Exam: Normal inspection: bilateral Ears, Nose, Throat: Present: normal pharynx Respiratory: Present: no respiratory distress, no accessory muscle use, rales - bilateral bases, left >right, wheezing - left Cardiovascular/Chest: Present: no murmur, irregularly irregular Gastrointestinal/Abdominal: Present: normal bowel sounds, nontender, nondistended, soft Extremity Exam: Present: pedal edema - +3 Neurological Exam: Present: alert, oriented, normal mood/affect Skin Exam: Present: normal color, warm/dry Progress - Results and Orders Patient's Lab Results:: I have reviewed the patient's lab results. - Vital Signs Patient's Vital Signs:: I have reviewed the patient's vital signs. Vital Signs: Vital Signs 02/10/20 07:37 Temperature 36.8 C Pulse Rate 78 Respiratory Rate 22 H Blood Pressure 110/72 O2 Sat by Pulse Oximetry 89 L - EKG EKG #1 EKG: atrial fibrillation - HR 88, RBBB, unchanged from 10/2019 EKG read: Interp. by me - X-Ray X-Ray #1 X-Ray: chest - bilateral upper lung infiltrates Interpretation: Reviewed by me - Progress/Reassessment Chief Complaint: Dyspnea Progress Note-Subjective: 02/10/20 09:16 discussed Xray findings and diagnosis of pneumonia with patient and as WBC is more consistent with viral infection will get respiratory panel but start antibiotics for possible bacterial pneumonia because of patient age, CHF, h/o cancer, labs patient PSI is 178, class V 02/10/20 10:55 respiratory panel showed a laura virus, patient comfortable, 91% on 2liters O2 discussed with patient and 02/10/20 11:[address] Amato, discussed that patient doesn't meet criteria for COVID testing (no fever, alternate diagnosis) okay to admit for pneumonia and CHF 02/10/20 12:[address] Cho, she will be the admitting doctor, agrees with currently plan Departure Clinical Impression: Coronavirus infection, unspecified Acute exacerbation of CHF (congestive heart failure) Qualifiers: Heart failure type: unspecified Qualified Code(s): I50.9 - Heart failure, unspecified Pneumonia Qualifiers: Pneumonia type: due to unspecified organism Laterality: bilateral Lung location: upper lobe of lung Qualified Code(s): J18.9 - Pneumonia, unspecified organism - Departure Disposition: Still a patient Condition: Stable
[2020-02-10 08:19] LABS: INR 2.44 INR (0.92-1.08); Prothrombin Time (Patient) 23.3 Seconds (9.1-10.7)
[2020-02-10 08:30] LABS: Albumin * 2.7 gm/dl (3.4-5.0); Anion Gap 17.2 mmol/L (6.8-13.8); BUN/Creatinine Ratio 33.1 (9.0-21.6); Bilirubin, Total 1.5 mg/dL (0.0-1.1); Ca. Corrected For Albumin 9.2 mg/dL (8.4-10.2); Calcium * 8.5 mg/dL (7.9-10.9); Carbon Dioxide 23.2 mmol/L (24-32.6); Potassium 4.4 mmol/L (3.4-4.6); Total Protein 6.1 gm/dL (6.2-8.2)
[2020-02-10 08:31] LABS: Troponin I 0.116 ng/mL (0.00-0.10)
[2020-02-10] MEDS ORDERED: FUROSEMIDE 10 MG/ML VIAL IV ONE (08:50)
[2020-02-10] MEDS ORDERED: cefTRIAXone SODIUM 1,000 MG/100 ML BAG IV ONE (09:15)
[2020-02-10] MEDS: NORMAL SALINE 1,000 ML IV PRN ×2 (09:41→17:28)
[2020-02-10] MEDS ORDERED: AZITHROMYCIN 250 MG TABLET PO STA (11:42)
[2020-02-10] MEDS ORDERED: ACETAMINOPHEN 325 MG TABLET PO PRN ×2 (11:42→13:33)
[2020-02-10] MEDS ORDERED: CODEINE PHOSPHATE/GUAIFENESIN 5 ML UDC PO PRN (13:27)
[2020-02-10] MEDS ORDERED: ALBUTEROL SULFATE 2.5 MG/0.5 ML VIAL.NEB IH PRN (13:30)
[2020-02-10] MEDS ORDERED: guaiFENesin/DEXTROMETHORPHAN SYRUP PO PRN (13:36)
[2020-02-10] MEDS ORDERED: WARFARIN SODIUM 1 MG TABLET PO SCH (13:45)
[2020-02-10] MEDS: FUROSEMIDE 10 MG/ML VIAL IV SCH (15:05)
[2020-02-10] MEDS: METOPROLOL TARTRATE 25 MG TABLET PO SCH ×2 (15:09→21:46)
[2020-02-10] MEDS: BETA-CAROTENE(A) W-C , E/MIN 1 TAB TABLET PO SCH (15:09)
--- NOTE | 2020-02-10 15:12 | HP ---
Chief Complaint - Chief Complaint Date of Service: 02/10/20 Time of Service: 14:36 Chief Complaint: I have cough, shortness of breath, and weakness since yesterday. History of Present Illness: 89-year-old male with past medical history of chronic atrial fibrillation, bladder cancer, hypercholesterolemia, BPH, and CHF was evaluated in the ER for persistent nonproductive cough, worsening shortness of breath at rest and on exertion, and occasional chills that all started yesterday. Patient reports his symptoms started with a cough that he describes as dry and nonproductive of phlegm, he later became more short of breath than usual even at rest. Around 3 AM this morning the patient's became alarmed when his shortness of breath worsened and his breathing became labored and allowed. Patient was brought to the ER by EMS where he was noted to be acutely ill and hypoxic. Patient had an oxygen saturation below 90% on room air and required oxygen supplementation by nasal cannula. He was afebrile but when asked reports occasional chills. Labs on admission demonstrated normal WBCs but elevated neutrophils, there were no bands. He also demonstrated an electrolyte imbalance specifically hypernatremia and hyperchloremia, most likely secondary to dehydration. Patient also had an increase in his serum creatinine from his baseline although it remains within normal range and decrease in his GFR from his last documented results. Patient also had a markedly elevated BNP which was several thousand points from his last recorded BNP indicating worsening of his CHF. He also had a positive troponin which is most likely due to his acute illness. He denies any chest pain or any other cardiac symptoms at the moment. Physical exam was positive for significant rhonchi worse and his upper lobes bilaterally and crackles worse at the bases and bilateral pedal edema which he says he has had for the past 3 weeks before becoming ill. When asked the patient was not sure if he has been taking his oral diuretics and says he believes he ran out of the medication over 10 days ago. We will confirm this with his who is currently not present because she is the one that manages his medications. Chest x-ray was significant for infiltrates in his upper lung lobes. Patient also arrived hypotensive and required IV fluids. ER physician ordered a viral panel which was positive for a strain of coronavirus. Given the current pandemic with COVID-19 and the patient's risk factors, decision to swab for the virus was made. The swab was sent to the [facility] for testing, we will follow-up with results. In the meantime, patient was placed in a negative pressure room with strict airborne precautions. He will be treated with IV antibiotics for possible superimposed community-acquired pneumonia and IV diuretics to manage his CHF. Follow-up labs were ordered for tomorrow morning and patient was started on a fluid restricted diet. Given his signs and symptoms of sepsis which was indicated by positive repeat lactic acid levels, hypotension,, tachypnea of greater than 22 breaths/min, elevated bilirubin and worsening of his renal function and a documented source of infection in his lungs, we will also treat patient with cautious addition IV hydration. We will continue to monitor him closely. 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 Horn with [facility] Encounter for central line placement Onset Date: ~12/07/10 [facility] right subclavian central venous line H/O barium enema Onset Date: ~10/03/11 [facility]; scattered diverticular disease no masses H/O exploratory laparotomy Onset Date: ~12/22/10 [facility] repair of small bowel obstruction H/O total cystectomy Onset Date: ~12/07/10 Dr. Ilan Everett History of flexible sigmoidoscopy Onset Date: ~02/05/02 Dr. Angel Chiang MD Normal redundant colon History of genitourinary surgery Onset Date: ~12/07/10 ileal coduit urinary diversion. Dr. Ilan Everett [facility] History of radical prostatectomy Onset Date: ~12/07/10 Dr. Ilan Everett Hx of lithotripsy Onset Date: Unknown x3 Family History: Family History (Last Reviewed 02/10/20 @ 13:18 by Dion Caballero RN) Father , unknown age; "old age" No problems noted. Mother , unknown age Diabetes Arthritis Brother Myocardial infarction Son Alive and well Son Alive and well Social History: (Last Reviewed 02/10/20 @ 13:18 by Dion Caballero RN) Social History: adopted: No Marital status: lives independently: Yes household members: spouse number of children: 2 current occupational status: retired Previous occupational history: [employer] Highest education level completed: high school graduate Service: Yes Tobacco: Smoking Status: Former smoker Alcohol: alcohol intake: never Substance Use: substance use type: unknown Dietary Habits: caffeine: Yes Peds Patient Hx - Developmental: No Pertinent Hx Peds Patient Hx - Medical: No Pertinent Hx Peds Patient Hx - Cardiac/Respiratory: No Pertinent Hx Peds Patient Hx - Surgical: No Surgical History Patient History - Cancer: No Hx of Cancer Review Of Systems (GEN) - Review of Systems Generalized/Overall Review: Present: Weakness, Chills, Fatigue EENTM: Present: No Symptoms Reported Respiratory: Present: Cough, Shortness of Breath Cardiac: Present: No Symptoms Reported Abdominal: Present: No Symptoms Reported Genitourinary: Present: No Symptoms Reported Musculoskeletal: Present: No Symptoms Reported Neurological: Present: No Symptoms Reported Skin: Present: No Symptoms Reported Endocrine: Present: No Symptoms Reported Immunizations: IMMUNIZATION HX Immunizations Up to Date Yes History of Influenza Vaccine Yes Hx Pneumococcal Vaccination Yes Allergies/Adverse Reactions: Allergies Allergy/AdvReac Type Severity Reaction Status Date / Time No Known Allergies Allergy Verified 11/25/19 09:55 Home Medications: HOME MEDICATIONS vitamins A,C,C-tunz-gskqrs 7,160 unit-113 mg-100 unit tablet 1 tab PO DAILY tab 08/07/18 [Last Taken 10/25/19] Durable Medical Equipment See Rx Instructions .ROUTE .MEDSUPPLY #12 ea 08/10/19 [Last Taken Unknown] Acetaminophen [Tylenol] 650 mg PO Q6H PRN #30 tab 11/06/19 [Last Taken Unknown] atorvastatin 20 mg tablet 20 mg PO DAILY #30 tab 12/16/19 [Last Taken Unknown] Amiodarone HCl 200 mg PO DAILY 02/10/20 [Last Taken Unknown] Furosemide 20 mg PO DAILY 02/10/20 [Last Taken Unknown] Metoprolol Tartrate [Lopressor] 25 mg PO BID 02/10/20 [Last Taken Unknown] Warfarin Sodium 0.5 mg PO TUSA 02/10/20 [Last Taken Unknown] Warfarin Sodium [Coumadin] 1 mg PO DAILY 02/10/20 [Last Taken Unknown] Exam - Exam Vital Signs: Vital Signs - Last Taken Temp 37.2 C 02/10/20 13:32 Pulse 75 02/10/20 13:32 Resp 22 H 02/10/20 13:32 BP 122/63 02/10/20 13:32 Pulse Ox 2 L 02/10/20 13:32 Constitutional: Present: Alert, Oriented x3, Cooperative, Well developed, Well nourished, No distress, Elderly ENT Exam: Present: normal ENT inspection, hard of hearing Eye Exam: bilateral eye: normal inspection, PERRL, EOMI Neck: Present: non-tender, full range of motion, supple, normal inspection, trachea midline Back Exam: Present: normal inspection, no CVA tenderness, no vertebral tenderness Breasts: Present: Exam deferred Respiratory: Present: chest non-tender, no respiratory distress, no accessory muscle use, crackles, rhonchi Cardiovascular/Chest: Present: no chest tenderness, no gallop, no JVD, no murmur, no rub, irregularly irregular, edema - Bilateral 3+ pedal edema Peripheral Pulses: carotid (R): 3+, carotid (L): 3+, dorsalis-pedis (R): 2+, dorsalis-pedis (L): 2+ Abdomen: Present: Normal bowel sounds, soft, nontender, nondistended, no rebound tenderness, no hepatospenomegaly, no masses /Rectal: Present: Exam deferred Extremity: Present: normal range of motion, non-tender, no calf tenderness, pedal edema, other - Patient has significantly long unkept toenails and debris accumulated in his interdigitary spaces bilaterally. Purplish discoloration and the distal portion of his feet were also noted. Skin Exam: Present: warm/dry, no cyanosis, other - Purplish discoloration on sole and distal portion of feet. Lymphatic: Present: no adenopathy Neurologic: Present: anesthesiology physician assistant II-XII nml as tested, no motor/sensory deficits, alert, normal mood/affect, oriented x 3 Appearance: Present: appropriate appearance, appropriate insight, neat, no memory impairment Eye contact: Present: cooperative, good eye contact, normal speech Thoughts: Present: normal thought pattern, no apparent hallucination Diagnostic Studies: Abnormal Lab Results 02/10/20 02/10/20 02/10/20 Range/Units 08:00 08:06 08:06 RBC 3.84 L (4.7-6.0) M/mm3 Hgb 13.3 L (13.5-18.0) gm/dL Hct 40.0 L (42.0-52.0) % MCV 104.2 H (78-100) fl MCH 34.6 H (27-31) pg RDW 15.3 H (11.5-14.0) % Immature Gran % (Auto) 0.50 H (0.001-0.429) % Immature Gran # (Auto) 0.04 H (0.000-0.0310) K/mm3 Neutrophils % 90.7 H (42-75.0) % Lymphocytes % 2.3 L (20-51) % Neutrophils # 6.7 H (1.3-6.0) K/mm3 Lymphocytes # 0.17 L (1.5-3.5) k/mm3 PT (9.1-10.7) Seconds INR (Anticoag Therapy) (0.92-1.08) INR Sodium 145 H (132-142) mmol/L Plasma Sodium 146 H (130-142) mmol/L Chloride 109 H (97-106) mmol/L Carbon Dioxide 23.2 L (24-32.6) mmol/L Anion Gap 17.2 H (6.8-13.8) mmol/L BUN 45 H D (6-23) mg/dL Est GFR (Non-Af Amer) 53 L (60-130) mL/min BUN/Creatinine Ratio 33.1 H (9.0-21.6) Random Glucose 190 H (70-110) mg/dL Lactic Acid, Venous 3.6 H* (0.4-2.0) mmol/L Total Bilirubin 1.5 H (0.0-1.1) mg/dL Troponin I 0.116 H* (0.00-0.10) ng/mL B-Natriuretic Peptide 78108 H (5-650) pg/mL Total Protein 6.1 L (6.2-8.2) gm/dL Albumin 2.7 L (3.4-5.0) gm/dl Coronavirus HKU1 (PCR) (NotDetected) 02/10/20 02/10/20 02/10/20 Range/Units 08:08 09:25 12:44 RBC (4.7-6.0) M/mm3 Hgb (13.5-18.0) gm/dL Hct (42.0-52.0) % MCV (78-100) fl MCH (27-31) pg RDW (11.5-14.0) % Immature Gran % (Auto) (0.001-0.429) % Immature Gran # (Auto) (0.000-0.0310) K/mm3 Neutrophils % (42-75.0) % Lymphocytes % (20-51) % Neutrophils # (1.3-6.0) K/mm3 Lymphocytes # (1.5-3.5) k/mm3 PT 23.3 H (9.1-10.7) Seconds INR (Anticoag Therapy) 2.44 H (0.92-1.08) INR Sodium (132-142) mmol/L Plasma Sodium (130-142) mmol/L Chloride (97-106) mmol/L Carbon Dioxide (24-32.6) mmol/L Anion Gap (6.8-13.8) mmol/L BUN (6-23) mg/dL Est GFR (Non-Af Amer) (60-130) mL/min BUN/Creatinine Ratio (9.0-21.6) Random Glucose (70-110) mg/dL Lactic Acid, Venous 2.2 H* (0.4-2.0) mmol/L Total Bilirubin (0.0-1.1) mg/dL Troponin I (0.00-0.10) ng/mL B-Natriuretic Peptide (5-650) pg/mL Total Protein (6.2-8.2) gm/dL Albumin (3.4-5.0) gm/dl Coronavirus HKU1 (PCR) Detected H (NotDetected) Laboratory Results WBC 7.3 K/mm3 (4.0-10.5) 02/10/20 08:06 RBC 3.84 M/mm3 (4.7-6.0) L 03/25/20 08:06 Hgb 13.3 gm/dL (13.5-18.0) L 02/10/20 08:06 Hct 40.0 % (42.0-52.0) L 02/10/20 08:06 MCV 104.2 fl (78-100) H 02/10/20 08:06 MCH 34.6 pg (27-31) H 02/10/20 08:06 MCHC 33.3 g/dl (32-36) 02/10/20 08:06 RDW 15.3 % (11.5-14.0) H 02/10/20 08:06 Plt Count 205 K/mm3 (150-450) 02/10/20 08:06 MPV 9.3 fl (8-11.3) 02/10/20 08:06 Immature Gran % (Auto) 0.50 % (0.001-0.429) H 02/10/20 08:06 Immature Gran # (Auto) 0.04 K/mm3 (0.000-0.0310) H 02/10/20 08:06 Neutrophils % 90.7 % (42-75.0) H 02/10/20 08:06 Lymphocytes % 2.3 % (20-51) L 02/10/20 08:06 Monocytes % 6.4 % (0.0-9) 02/10/20 08:06 Eosinophils % 0.0 % (0.0-3.0) 02/10/20 08:06 Basophils % 0.1 % (0.0-1.0) 02/10/20 08:06 Nucleated RBC % 0.0 k/mm3 (0-1) 02/10/20 08:06 Neutrophils # 6.7 K/mm3 (1.3-6.0) H 02/10/20 08:06 Lymphocytes # 0.17 k/mm3 (1.5-3.5) L 02/10/20 08:06 Monocytes # 0.5 k/mm3 (0.0-1.0) 02/10/20 08:06 Eosinophils # 0.0 k/mm3 (0.0-0.7) 02/10/20 08:06 Absolute Basophils 0.0 k/mm3 (0.0-0.1) 02/10/20 08:06 PT 23.3 Seconds (9.1-10.7) H 02/10/20 08:08 INR (Anticoag Therapy) 2.44 INR (0.92-1.08) H 02/10/20 08:08 Sodium 145 mmol/L (132-142) H 02/10/20 08:06 Plasma Sodium 146 mmol/L (130-142) H 02/10/20 08:06 Potassium 4.4 mmol/L (3.4-4.6) 02/10/20 08:06 Chloride 109 mmol/L (97-106) H 02/10/20 08:06 Carbon Dioxide 23.2 mmol/L (24-32.6) L 02/10/20 08:06 Anion Gap 17.2 mmol/L (6.8-13.8) H 02/10/20 08:06 BUN 45 mg/dL (6-23) H D 02/10/20 08:06 Creatinine 1.36 mg/dL (0.4-1.4) 02/10/20 08:06 Est GFR (Non-Af Amer) 53 mL/min (60-130) L 02/10/20 08:06 BUN/Creatinine Ratio 33.1 (9.0-21.6) H 02/10/20 08:06 Random Glucose 190 mg/dL (70-110) H 02/10/20 08:06 Lactic Acid, Venous 2.2 mmol/L (0.4-2.0) H* 02/10/20 12:44 Calcium 8.5 mg/dL (7.9-10.9) 02/10/20 08:06 Calcium Adj for Albumin 9.2 mg/dL (8.4-10.2) 02/10/20 08:06 Total Bilirubin 1.5 mg/dL (0.0-1.1) H 02/10/20 08:06 AST 41 U/L (0-48) 02/10/20 08:06 ALT 39 U/L (19-67) 02/10/20 08:06 Alkaline Phosphatase 112 U/L (50-170) 02/10/20 08:06 Troponin I 0.116 ng/mL (0.00-0.10) H* 02/10/20 08:06 B-Natriuretic Peptide 02376 pg/mL (5-650) H 02/10/20 08:06 Total Protein 6.1 gm/dL (6.2-8.2) L 02/10/20 08:06 Albumin 2.7 gm/dl (3.4-5.0) L 02/10/20 08:06 Procalcitonin 0.28 ng/mL (0.05-0.50) 02/10/20 08:00 Chlamy pneumoniae PCR Not detected (NotDetected) 02/10/20 09:25 Adenovirus (PCR) Not detected (NotDetected) 02/10/20 09:25 B. pertussis DNA (PCR) Not detected (NotDetected) 02/10/20 09:25 Coronavirus OC43 (PCR) Not detected (NotDetected) 02/10/20 09:25 Coronavirus HKU1 (PCR) Detected (NotDetected) H 02/10/20 09:25 Coronavirus 229E (PCR) Not detected (NotDetected) 02/10/20 09:25 Coronavirus NL63 (PCR) Not detected (NotDetected) 02/10/20 09:25 Human Metapneumovir PCR Not detected (NotDetected) 02/10/20 09:25 Influenza A (H1) PCR Not detected (NotDetected) 02/10/20 09:25 Influenza A (H1N1) PCR Not detected (NotDetected) 02/10/20 09:25 Influenza A (H3) PCR Not detected (NotDetected) 02/10/20 09:25 Influenza B (RT-PCR) Not detected (NotDetected) 02/10/20 09:25 M. pneumoniae (PCR) Not detected (NotDetected) 02/10/20 09:25 Parainfluenza 1 (PCR) Not detected (NotDetected) 02/10/20 09:25 Parainfluenza 2 (PCR) Not detected (NotDetected) 02/10/20 09:25 Parainfluenza 3 (PCR) Not detected (NotDetected) 02/10/20 09:25 Parainfluenza 4 (PCR) Not detected (NotDetected) 02/10/20 09:25 RSV (PCR) Not detected (NotDetected) 02/10/20 09:25 Rhinovirus (PCR) Not detected (NotDetected) 02/10/20 09:25 Assessment/Plan - Narrative Narrative: We will keep patient in negative pressure room with strict airborne precautions and follow-up with Covid 19 results. We will treat him with dual IV antibiotics and IV diuretics to treat CHF and fluid overload. We will follow-up with labs in the morning to reevaluate electrolytes and renal function. Patient was noted to have purplish discoloration in the distal portion of both feet which he said he has had for several weeks now, however there were no signs or symptoms of infection. We will continue to monitor this. Currently he is saturating better than when he arrived with oxygen supplementation. Symptomatic medications were ordered to manage cough and in case of fever. We will follow-up with him in the morning. - Assessment/Plan (1) Bilateral upper lobe community acquired pneumonia Problem: Acute (2) Chronic atrial fibrillation Problem: Acute (3) Dehydration, moderate Problem: Acute (4) Acute kidney injury superimposed on CKD Problem: Acute (5) Hypoxia Problem: Acute (6) Heart failure, chronic, with acute decompensation Problem: Acute (7) Coronavirus infection Problem: Acute (8) Sepsis Problem: Acute Qualifiers: Sepsis type: sepsis due to unspecified organism Sepsis acute organ dysfunction status: with acute organ dysfunction Acute respiratory failure type: with hypoxia Severe sepsis shock status: without septic shock
[2020-02-10] MEDS: WARFARIN SODIUM 1 MG TABLET PO SCH (17:29)
[2020-02-10] MEDS: ROSUVASTATIN CALCIUM 10 MG TABLET PO SCH (21:47)
[2020-02-11] MEDS: FUROSEMIDE 10 MG/ML VIAL IV SCH ×2 (01:55→13:34)
[2020-02-11] MEDS: PANTOPRAZOLE SODIUM 20 MG TABLET.DR PO SCH (06:34)
[2020-02-11 06:53] LABS: Hematocrit 42.8 % (42.0-52.0); Hemoglobin 14.2 gm/dL (13.5-18.0); Mean Cell Volume 104.9 fl (78-100); Mean Corpuscular Hemoglobin 34.8 pg (27-31); Mean Corpuscular Hgb Conc 33.2 g/dl (32-36); Mean Platelet Volume 9.4 fl (8-11.3); Neutrophil # 6.6 K/mm3 (1.3-6.0); Neutrophil % 87.1 % (42-75.0); Platelet Count 211 K/mm3 (150-450); Red Blood Count 4.08 M/mm3 (4.7-6.0); Red Cell Distribution Width 15.3 % (11.5-14.0); White Blood Count 7.6 K/mm3 (4.0-10.5)
[2020-02-11 06:58] LABS: Prothrombin Time (Patient) 26.2 Seconds (9.1-10.7)
[2020-02-11 06:59] LABS: INR 2.75 INR (0.92-1.08)
[2020-02-11 07:08] LABS: Albumin * 2.5 gm/dl (3.4-5.0); Anion Gap 10.2 mmol/L (6.8-13.8); BUN/Creatinine Ratio 33.6 (9.0-21.6); Bilirubin, Total 1.2 mg/dL (0.0-1.1); Ca. Corrected For Albumin 9.3 mg/dL (8.4-10.2); Calcium * 8.4 mg/dL (7.9-10.9); Carbon Dioxide 30.5 mmol/L (24-32.6); Potassium 3.7 mmol/L (3.4-4.6)
[2020-02-11] MEDS: METOPROLOL TARTRATE 25 MG TABLET PO SCH ×2 (08:19→23:49)
[2020-02-11] MEDS: BETA-CAROTENE(A) W-C , E/MIN 1 TAB TABLET PO SCH (08:19)
[2020-02-11] MEDS: AZITHROMYCIN 250 MG TABLET PO SCH (08:19)
--- NOTE | 2020-02-11 10:29 | PN ---
Subjective - Date and Time Seen Date: 02/11/20 Time: 10:16 Subjective Narrative: I think I am feeling a little better, I have less cough and less shortness of breath. But not sure if I am out of the myers. Objective Objective Narrative: 89-year-old male admitted for bilateral upper lobe pneumonia, coronavirus infection, and decompensated CHF was evaluated at bedside was found to be afebrile and in no acute distress. Clinically the patient shows improvement compared to when he arrived. He was resting comfortably in an arm chair and looks stronger and better hydrated during this morning rounds. He was also noted to not be coughing as much or having shortness of breath. There has been no recurrence of fever and tachypnea has resolved. He maintains oxygen saturation above 92% with nasal cannula, we will reevaluate him later during the day in order to determine whether to start weaning oxygen. This morning's labs demonstrate improvement in his renal function which is on a upward trend towards his baseline, however his hypernatremia persists. In order to avoid worsening electrolyte imbalance and fluid overload given the patient's CHF history, IV fluids were discontinued. We will continue to administer IV diuretics as previously ordered in order to treat his CHF. Nursing staff from the overnight shift reported a brief moment of delirium when the patient became confused about where he was, but after being oriented it resolved. This morning the patient appeared to be oriented x3 and was in a normal mood. We will continue to watch for sundowning or nighttime delirium. Auscultation of his lungs had less crackles and less rhonchi which is encouraging. We will continue to monitor him closely. - Review of Systems Generalized/Overall Review: Reports: No Symptoms Reported EENTM: Reports: No Symptoms Reported Respiratory: Reports: Cough Cardiac: Reports: No Symptoms Reported Abdominal: Reports: No Symptoms Reported Genitourinary Symptoms: Reports: No Symptoms Reported Musculoskeletal Complaints: Reports: No Symptoms Reported Neurological: Reports: No Symptoms Reported Skin: Reports: No Symptoms Reported Endocrine: Reports: No Symptoms Reported - Vitals Vitals: Last Vital Signs Temp 36.8 C 02/11/20 10:03 Pulse 86 02/11/20 10:03 Resp 22 H 02/11/20 10:03 BP 96/56 02/11/20 10:03 Pulse Ox 93 02/11/20 10:03 - Abnormal Lab Findings Abnormal Lab Findings: Abnormal Lab Results 02/10/20 02/10/20 02/11/20 Range/Units 09:25 12:44 06:33 RBC (4.7-6.0) M/mm3 MCV (78-100) fl MCH (27-31) pg RDW (11.5-14.0) % Immature Gran % (Auto) (0.001-0.429) % Immature Gran # (Auto) (0.000-0.0310) K/mm3 Neutrophils % (42-75.0) % Lymphocytes % (20-51) % Neutrophils # (1.3-6.0) K/mm3 Lymphocytes # (1.5-3.5) k/mm3 PT 26.2 H (9.1-10.7) Seconds INR (Anticoag Therapy) 2.75 H (0.92-1.08) INR Sodium (132-142) mmol/L Plasma Sodium (130-142) mmol/L Chloride (97-106) mmol/L BUN (6-23) mg/dL BUN/Creatinine Ratio (9.0-21.6) Lactic Acid, Venous 2.2 H* (0.4-2.0) mmol/L Total Bilirubin (0.0-1.1) mg/dL AST (0-48) U/L Total Protein (6.2-8.2) gm/dL Albumin (3.4-5.0) gm/dl Coronavirus HKU1 (PCR) Detected H (NotDetected) 02/11/20 02/11/20 Range/Units 06:33 06:33 RBC 4.08 L (4.7-6.0) M/mm3 MCV 104.9 H (78-100) fl MCH 34.8 H (27-31) pg RDW 15.3 H (11.5-14.0) % Immature Gran % (Auto) 0.50 H (0.001-0.429) % Immature Gran # (Auto) 0.04 H (0.000-0.0310) K/mm3 Neutrophils % 87.1 H (42-75.0) % Lymphocytes % 3.9 L (20-51) % Neutrophils # 6.6 H (1.3-6.0) K/mm3 Lymphocytes # 0.30 L (1.5-3.5) k/mm3 PT (9.1-10.7) Seconds INR (Anticoag Therapy) (0.92-1.08) INR Sodium 146 H (132-142) mmol/L Plasma Sodium 146 H (130-142) mmol/L Chloride 109 H (97-106) mmol/L BUN 39 H (6-23) mg/dL BUN/Creatinine Ratio 33.6 H (9.0-21.6) Lactic Acid, Venous (0.4-2.0) mmol/L Total Bilirubin 1.2 H (0.0-1.1) mg/dL AST 49 H (0-48) U/L Total Protein 6.0 L (6.2-8.2) gm/dL Albumin 2.5 L (3.4-5.0) gm/dl Coronavirus HKU1 (PCR) (NotDetected) - Exam Constitutional: Present: Alert, Oriented x3, Cooperative, Well developed, Well nourished, No distress, Elderly ENT Exam: Present: hard of hearing Neck: Present: non-tender, full range of motion, supple, normal inspection, trachea midline Respiratory: Present: crackles - Mild scattered crackles worse at bases, rhonchi - Residual rhonchi in the upper lobes bilaterally Cardiovascular/Chest: Present: no chest tenderness, no gallop, no JVD, no murmur, no rub, irregularly irregular, edema - Bilateral 2+ pedal edema Abdomen: Present: Normal bowel sounds, soft, nontender, nondistended, no rebound tenderness, no hepatospenomegaly, no masses, other - Clean ostomy site with bag in right lower quadrant, no signs of infection or drainage. /Rectal: Present: Other - Urinary ostomy site and right lower quadrant Extremity: Present: normal range of motion, non-tender, no calf tenderness, pedal edema Skin Exam: Present: normal color, warm/dry, no cyanosis Lymphatic: Present: no adenopathy Neurologic: Present: [facility] II-XII nml as tested, alert, normal mood/affect, oriented x 3 Appearance: Present: appropriate appearance, appropriate insight, neat, no memory impairment Eye contact: Present: cooperative, good eye contact, normal speech Thoughts: Present: normal thought pattern, no apparent hallucination Assessment/Plan Plan Narrative: Follow-up labs have been ordered for tomorrow morning for reevaluation of electrolytes. All IV fluids have been discontinued since patient is more hydrated and his renal function is almost at baseline and within normal range. We will keep him on oxygen for now we will reevaluate this afternoon to see if weaning orders should be placed. Auscultation of the patient's lungs demonstrate improvement compared to when he arrived, however the patient is not ready for discharge. We will keep him inpatient to continue managing with dual IV antibiotics to cover for pneumonia and swab for COVID-19 will be sent off to the [facility]gien[facility] lab to rule out infection with a virus. - Problems/Diagnosis (1) Bilateral upper lobe community acquired pneumonia Problem: Acute (2) Chronic atrial fibrillation Problem: Acute (3) Dehydration, moderate Problem: Acute (4) Acute kidney injury superimposed on CKD Problem: Acute (5) Hypoxia Problem: Acute (6) Heart failure, chronic, with acute decompensation Problem: Acute (7) Coronavirus infection Problem: Acute (8) Sepsis Problem: Acute Qualifiers: Sepsis type: sepsis due to unspecified organism Sepsis acute organ dysfunction status: with acute organ dysfunction Acute respiratory failure type: with hypoxia Severe sepsis shock status: without septic shock (9) History of creation of ostomy Problem: Acute
--- NOTE | 2020-02-11 11:04 | PN ---
Objective - Vitals Vitals: Last Vital Signs Temp 36.8 C 02/11/20 10:03 Pulse 86 02/11/20 10:03 Resp 22 H 02/11/20 10:03 BP 96/56 02/11/20 10:03 Pulse Ox 93 02/11/20 10:03 - Abnormal Lab Findings Abnormal Lab Findings: Abnormal Lab Results 02/10/20 02/10/20 02/11/20 Range/Units 09:25 12:44 06:33 RBC (4.7-6.0) M/mm3 MCV (78-100) fl MCH (27-31) pg RDW (11.5-14.0) % Immature Gran % (Auto) (0.001-0.429) % Immature Gran # (Auto) (0.000-0.0310) K/mm3 Neutrophils % (42-75.0) % Lymphocytes % (20-51) % Neutrophils # (1.3-6.0) K/mm3 Lymphocytes # (1.5-3.5) k/mm3 PT 26.2 H (9.1-10.7) Seconds INR (Anticoag Therapy) 2.75 H (0.92-1.08) INR Sodium (132-142) mmol/L Plasma Sodium (130-142) mmol/L Chloride (97-106) mmol/L BUN (6-23) mg/dL BUN/Creatinine Ratio (9.0-21.6) Lactic Acid, Venous 2.2 H* (0.4-2.0) mmol/L Total Bilirubin (0.0-1.1) mg/dL AST (0-48) U/L Total Protein (6.2-8.2) gm/dL Albumin (3.4-5.0) gm/dl Coronavirus HKU1 (PCR) Detected H (NotDetected) 02/11/20 02/11/20 Range/Units 06:33 06:33 RBC 4.08 L (4.7-6.0) M/mm3 MCV 104.9 H (78-100) fl MCH 34.8 H (27-31) pg RDW 15.3 H (11.5-14.0) % Immature Gran % (Auto) 0.50 H (0.001-0.429) % Immature Gran # (Auto) 0.04 H (0.000-0.0310) K/mm3 Neutrophils % 87.1 H (42-75.0) % Lymphocytes % 3.9 L (20-51) % Neutrophils # 6.6 H (1.3-6.0) K/mm3 Lymphocytes # 0.30 L (1.5-3.5) k/mm3 PT (9.1-10.7) Seconds INR (Anticoag Therapy) (0.92-1.08) INR Sodium 146 H (132-142) mmol/L Plasma Sodium 146 H (130-142) mmol/L Chloride 109 H (97-106) mmol/L BUN 39 H (6-23) mg/dL BUN/Creatinine Ratio 33.6 H (9.0-21.6) Lactic Acid, Venous (0.4-2.0) mmol/L Total Bilirubin 1.2 H (0.0-1.1) mg/dL AST 49 H (0-48) U/L Total Protein 6.0 L (6.2-8.2) gm/dL Albumin 2.5 L (3.4-5.0) gm/dl Coronavirus HKU1 (PCR) (NotDetected) Assessment/Plan - Problems/Diagnosis (1) Bilateral upper lobe community acquired pneumonia Problem: Acute (2) Chronic atrial fibrillation Problem: Acute (3) Dehydration, moderate Problem: Acute (4) Acute kidney injury superimposed on CKD Problem: Acute (5) Hypoxia Problem: Acute (6) Heart failure, chronic, with acute decompensation Problem: Acute (7) Coronavirus infection Problem: Acute (8) Sepsis Problem: Acute Qualifiers: Sepsis type: sepsis due to unspecified organism Sepsis acute organ dysfunction status: with acute organ dysfunction Acute respiratory failure type: with hypoxia Severe sepsis shock status: without septic shock
[2020-02-11] MEDS: WARFARIN SODIUM 1 MG TABLET PO SCH (16:12)
[2020-02-11] MEDS: ROSUVASTATIN CALCIUM 10 MG TABLET PO SCH (23:49)
[2020-02-12 06:47] LABS: INR 3.43 INR (0.92-1.08); Prothrombin Time (Patient) 32.4 Seconds (9.1-10.7)
[2020-02-12 06:52] LABS: Albumin * 2.7 gm/dl (3.4-5.0); Bilirubin, Total 1.4 mg/dL (0.0-1.1); Ca. Corrected For Albumin 9.6 mg/dL (8.4-10.2); Calcium * 8.9 mg/dL (7.9-10.9); Carbon Dioxide 32.6 mmol/L (24-32.6); Potassium 3.6 mmol/L (3.4-4.6); Total Protein 6.6 gm/dL (6.2-8.2)
[2020-02-12] MEDS: BETA-CAROTENE(A) W-C , E/MIN 1 TAB TABLET PO SCH (08:22)
[2020-02-12] MEDS: PANTOPRAZOLE SODIUM 20 MG TABLET.DR PO SCH (08:22)
[2020-02-12] MEDS: AZITHROMYCIN 250 MG TABLET PO SCH (08:22)
[2020-02-12] MEDS: METOPROLOL TARTRATE 25 MG TABLET PO SCH ×2 (08:23→20:19)
[2020-02-12] MEDS ORDERED: FUROSEMIDE 20 MG TABLET PO PRN (09:20)
--- NOTE | 2020-02-12 11:48 | PN ---
Subjective - Date and Time Seen Date: 02/12/20 Time: 11:04 Subjective Narrative: I am feeling a little better and have less cough, but still gets short of breath with mild exertion. Objective Objective Narrative: 89-year-old male admitted for bilateral upper lobe pneumonia, coronavirus infection, hypoxia, and decompensated CHF was evaluated at bedside was found to be afebrile and in no acute distress. Patient's condition has not changed much from yesterday, although he shows improvement compared to when he arrived he continues to be dyspneic with mild exertion. Auscultation of the patient's lungs reveal bibasilar Crackles and coarse breath sounds in the apices of the lungs worse on the left. He reports improvement of his cough and it is noticeable that he is no longer coughing during physical exam but he says he was short of breath while going to the bathroom this morning. Oxygen saturation fluctuates with O2 by nasal cannula, therefore ABG was ordered for a clearer picture. Results revealed a mixed acid-base disorder specifically a compensated metabolic acidosis with respiratory alkalosis. However patient had noticeable improvement in his oxygen saturation with deep breathing, therefore some degree of deconditioning and or atelectasis is suspected so incentive spirometry as well as physical therapy to get the patient out of bed were ordered. His hypernatremia persists which is not surprising given the fact that he is on strict fluid restriction and has been treated with multiple doses of IV diuretics to address his decompensated CHF. All 3 doses of IV diuretics have been administered and his pedal edema has improved significantly, therefore his usual dose of p.o. diuretic was resumed. We will reevaluate to see if this is enough. His bilirubin which has been fluctuating, and AST were mildly elevated on this morning's labs but we will just monitor that for now given his acute illness which might explain the bump up in these results. CMP has been ordered for tomorrow morning for reevaluation of electrolytes bilirubin and liver enzymes. In the meantime we will follow-up with results of COVID-19 to rule it out as the etiology of his illness and continue to monitor the patient closely. - Review of Systems Generalized/Overall Review: Reports: No Symptoms Reported EENTM: Reports: No Symptoms Reported Respiratory: Reports: Cough, Shortness of Breath Cardiac: Reports: Edema Abdominal: Reports: No Symptoms Reported Genitourinary Symptoms: Reports: No Symptoms Reported Musculoskeletal Complaints: Reports: No Symptoms Reported Neurological: Reports: No Symptoms Reported Skin: Reports: No Symptoms Reported Endocrine: Reports: No Symptoms Reported - Vitals Vitals: Last Vital Signs Temp 36.4 C 02/12/20 08:27 Pulse 88 02/12/20 10:43 Resp 17 02/12/20 08:27 BP 113/85 02/12/20 08:27 Pulse Ox 94 02/12/20 10:13 - Abnormal Lab Findings Abnormal Lab Findings: Abnormal Lab Results 02/12/20 02/12/20 02/12/20 Range/Units 06:38 06:38 09:45 PT 32.4 H (9.1-10.7) Seconds INR (Anticoag Therapy) 3.43 H (0.92-1.08) INR pCO2 26.5 L (35.0-48.0) mmHg pO2 46.2 L (83.0-108.0) mmHg HCO3 17.9 L (21.0-28.0) mmol/L Total CO2 18.7 L (19.0-24.0) mmol/L Base Excess -4.4 L (-2.0-3.0) mmol/L ABG O2 Sat (Measured) 84.9 L (94.0-98.0) % Sodium 148 H (132-142) mmol/L Plasma Sodium 148 H (130-142) mmol/L Chloride 108 H (97-106) mmol/L BUN 35 H (6-23) mg/dL BUN/Creatinine Ratio 35.0 H (9.0-21.6) Random Glucose 116 H (70-110) mg/dL Total Bilirubin 1.4 H (0.0-1.1) mg/dL AST 50 H (0-48) U/L Albumin 2.7 L (3.4-5.0) gm/dl - Exam Constitutional: Present: Alert, Oriented x3, Cooperative, Well developed, Well nourished, No distress, Elderly ENT Exam: Present: normal ENT inspection, pharynx normal, hard of hearing Neck: Present: non-tender, full range of motion, supple, normal inspection, trachea midline Breasts: Present: Exam deferred, Nontender Respiratory: Present: no accessory muscle use, crackles, rales, rhonchi, other - Coarse breath sounds in apices of lungs Cardiovascular/Chest: Present: no gallop, no JVD, no murmur, no rub, irregularly irregular, edema - 1+ pedal edema on dorsum of right foot Abdomen: Present: Normal bowel sounds, soft, nontender, nondistended, no rebound tenderness, no hepatospenomegaly, no masses, other - Stoma in right lower quadrant no signs of drainage or infection /Rectal: Present: Exam deferred Extremity: Present: normal range of motion, non-tender, normal inspection, no calf tenderness, pedal edema - Residual edema in dorsum of right foot Skin Exam: Present: normal color, warm/dry, no cyanosis Lymphatic: Present: no adenopathy Neurologic: Present: investigative writer II-XII nml as tested, no motor/sensory deficits, alert, normal mood/affect, oriented x 3 Appearance: Present: appropriate appearance, appropriate insight, neat, no memory impairment Eye contact: Present: cooperative, good eye contact, normal speech Thoughts: Present: normal thought pattern, no apparent hallucination Assessment/Plan Plan Narrative: We will keep patient on O2 by nasal cannula and reevaluate his saturation throughout the day. Physical therapy has been ordered to get patient out of bed and to address deconditioning. He has also been ordered to do incentive spirometry to avoid atelectasis and weakening of his lungs. Follow-up labs have been ordered for tomorrow morning to reevaluate electrolytes and liver enzymes. We will follow-up with CoVID-19 results although this would not change the course of his treatment since patient is already in a negative pressure room. He will be signed out to the on-call physician will be briefed on his condition and plan of treatment. - Problems/Diagnosis (1) Bilateral upper lobe community acquired pneumonia Problem: Acute (2) Chronic atrial fibrillation Problem: Acute (3) Dehydration, moderate Problem: Resolved (4) Acute kidney injury superimposed on CKD Problem: Resolved (5) Hypoxia Problem: Acute (6) Heart failure, chronic, with acute decompensation Problem: Acute (7) Coronavirus infection Problem: Acute (8) Sepsis Problem: Resolved Qualifiers: Sepsis type: sepsis due to unspecified organism Sepsis acute organ dysfunction status: with acute organ dysfunction Acute respiratory failure type: with hypoxia Severe sepsis shock status: without septic shock (9) History of creation of ostomy Problem: Acute (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
[2020-02-12] MEDS: ROSUVASTATIN CALCIUM 10 MG TABLET PO SCH (20:19)
[2020-02-13 07:37] LABS: Albumin * 2.7 gm/dl (3.4-5.0); BUN/Creatinine Ratio 34.3 (9.0-21.6); Bilirubin, Total 1.3 mg/dL (0.0-1.1); Ca. Corrected For Albumin 9.6 mg/dL (8.4-10.2); Calcium * 8.9 mg/dL (7.9-10.9); Carbon Dioxide 32.1 mmol/L (24-32.6); Potassium 4.1 mmol/L (3.4-4.6); Total Protein 6.8 gm/dL (6.2-8.2)
[2020-02-13 07:51] LABS: Prothrombin Time (Patient) 37.8 Seconds (9.1-10.7)
[2020-02-13 07:56] LABS: INR 4.03 INR (0.92-1.08)
[2020-02-13] MEDS: PANTOPRAZOLE SODIUM 20 MG TABLET.DR PO SCH (08:49)
[2020-02-13] MEDS: BETA-CAROTENE(A) W-C , E/MIN 1 TAB TABLET PO SCH (08:49)
[2020-02-13] MEDS: AZITHROMYCIN 250 MG TABLET PO SCH (08:49)
[2020-02-13] MEDS: FUROSEMIDE 20 MG TABLET PO SCH (08:50)
[2020-02-13] MEDS: METOPROLOL TARTRATE 25 MG TABLET PO SCH ×2 (08:51→21:10)
[2020-02-13] MEDS ORDERED: FUROSEMIDE 10 MG/ML VIAL IV ONE (11:07)
[2020-02-13] MEDS: METHYLPREDNISOLONE SOD SUCC/PF 40 MG/ML VIAL IV SCH (13:15)
--- NOTE | 2020-02-13 17:22 | PN ---
Subjective - Date and Time Seen Date: 02/13/20 Time: 09:30 Subjective Narrative: Cam reports feeling ok. He reports still short of breath when up and coughing. He remains on 3lpm of oxygen via [place]. His SARS-CoV-2 test is negative. He denies fever or chills. Objective - Vitals Vitals: Last Vital Signs Temp 36.5 C 02/13/20 14:40 Pulse 93 02/13/20 14:40 Resp 20 02/13/20 14:40 BP 91/45 02/13/20 14:40 Pulse Ox 96 02/13/20 15:59 - Abnormal Lab Findings Abnormal Lab Findings: Abnormal Lab Results 02/13/20 02/13/20 Range/Units 07:19 07:19 PT 37.8 H (9.1-10.7) Seconds INR (Anticoag Therapy) 4.03 H* (0.92-1.08) INR Sodium 147 H (132-142) mmol/L Plasma Sodium 147 H (130-142) mmol/L Chloride 108 H (97-106) mmol/L BUN 36 H (6-23) mg/dL BUN/Creatinine Ratio 34.3 H (9.0-21.6) Random Glucose 120 H (70-110) mg/dL Total Bilirubin 1.3 H (0.0-1.1) mg/dL AST 49 H (0-48) U/L Albumin 2.7 L (3.4-5.0) gm/dl - Exam Constitutional: Present: Alert, Oriented x3, Cooperative, No distress ENT Exam: Present: hearing grossly normal Respiratory: Present: crackles - diffuse Cardiovascular/Chest: Present: regular rate, rhythm, no murmur Abdomen: Present: Normal bowel sounds, soft, nontender, nondistended Skin Exam: Present: normal color, warm/dry, no cyanosis Neurologic: Present: alert, normal mood/affect, oriented x 3 Appearance: Present: appropriate appearance, appropriate insight Eye contact: Present: cooperative, good eye contact, normal speech Thoughts: Present: normal thought pattern Assessment/Plan Plan Narrative: Cam has acute respiratory failure with hypoxia secondary to bilateral upper lobe pneumonia secondary to Coronavirus HKU1. Todays chest xray is concerning for ARDS and pulmonary edema. Will give lasix 40mg IV and IV solumedrol at 40mg q12hr. Will continue azithromycin for antiinflammatory properities. Rocephin is for potential bacterial pneumonia co-infection. SARS-CoV-2 is negative. Will attempt to wean from oxygen. Currently on 3lpm. If having increased oxygen demands may need to consider transfer for slot manager care if there is need for mechanical ventilation and paralytics. At this moment he appears to have no evidence of respiratory distress. - Problems/Diagnosis (1) ARDS (adult respiratory distress syndrome) Problem: Acute (2) Pneumonia due to human coronavirus Problem: Acute (3) Acute respiratory failure with hypoxia Problem: Acute
[2020-02-13] MEDS: ROSUVASTATIN CALCIUM 10 MG TABLET PO SCH (21:10)
[2020-02-14] MEDS: METHYLPREDNISOLONE SOD SUCC/PF 40 MG/ML VIAL IV SCH ×2 (00:10→14:04)
[2020-02-14 06:42] LABS: Hematocrit 45.7 % (42.0-52.0); Hemoglobin 15.1 gm/dL (13.5-18.0); Mean Cell Volume 105.1 fl (78-100); Mean Corpuscular Hemoglobin 34.7 pg (27-31); Mean Platelet Volume 9.8 fl (8-11.3); Neutrophil # 8.1 K/mm3 (1.3-6.0); Neutrophil % 93.9 % (42-75.0); Platelet Count 204 K/mm3 (150-450); Red Blood Count 4.35 M/mm3 (4.7-6.0); Red Cell Distribution Width 14.7 % (11.5-14.0); White Blood Count 8.6 K/mm3 (4.0-10.5)
[2020-02-14 06:51] LABS: Prothrombin Time (Patient) 37.1 Seconds (9.1-10.7)
[2020-02-14 06:57] LABS: INR 3.95 INR (0.92-1.08)
[2020-02-14] MEDS: FUROSEMIDE 20 MG TABLET PO SCH (08:35)
[2020-02-14] MEDS: AZITHROMYCIN 250 MG TABLET PO SCH (08:35)
[2020-02-14] MEDS: METOPROLOL TARTRATE 25 MG TABLET PO SCH ×2 (08:35→20:48)
[2020-02-14] MEDS: PANTOPRAZOLE SODIUM 20 MG TABLET.DR PO SCH (08:35)
[2020-02-14] MEDS: BETA-CAROTENE(A) W-C , E/MIN 1 TAB TABLET PO SCH (08:35)
[2020-02-14] MEDS: ROSUVASTATIN CALCIUM 10 MG TABLET PO SCH (20:48)
--- NOTE | 2020-02-14 21:50 | PN ---
Subjective - Date and Time Seen Date: 02/14/20 Time: 09:00 Subjective Narrative: Cam reports feeling ok. He is using less oxygen today and is down to 2lpm to keep sats >89%. He denies fever, chills, nausea, or vomiting. He does admit to shortness of breath with activity. Objective - Vitals Vitals: Last Vital Signs Temp 36.3 C 02/14/20 21:44 Pulse 110 H 02/14/20 21:44 Resp 18 02/14/20 21:44 BP 101/62 02/14/20 21:44 Pulse Ox 95 02/14/20 21:44 - Abnormal Lab Findings Abnormal Lab Findings: Abnormal Lab Results 02/14/20 02/14/20 Range/Units 06:20 06:20 RBC 4.35 L (4.7-6.0) M/mm3 MCV 105.1 H (78-100) fl MCH 34.7 H (27-31) pg RDW 14.7 H (11.5-14.0) % Immature Gran % (Auto) 0.80 H (0.001-0.429) % Immature Gran # (Auto) 0.07 H (0.000-0.0310) K/mm3 Neutrophils % 93.9 H (42-75.0) % Lymphocytes % 2.0 L (20-51) % Neutrophils # 8.1 H (1.3-6.0) K/mm3 Lymphocytes # 0.17 L (1.5-3.5) k/mm3 PT 37.1 H (9.1-10.7) Seconds INR (Anticoag Therapy) 3.95 H (0.92-1.08) INR - Exam Constitutional: Present: Alert, Oriented x3, Cooperative ENT Exam: Present: hearing grossly normal Respiratory: Present: no respiratory distress, crackles Cardiovascular/Chest: Present: regular rate, rhythm, no murmur Abdomen: Present: Normal bowel sounds, soft, nontender, nondistended Skin Exam: Present: normal color, warm/dry, no cyanosis Assessment/Plan Plan Narrative: Cam is holding steady today. He is down from 3lpm to 2lpm today. Will continue current treatment and continue to wean oxygen as able. Continue antibiotics to cover for possible bacterial coinfection, continue steroids for ards, continue oxygen. COVID negative. - Problems/Diagnosis (1) ARDS (adult respiratory distress syndrome) Problem: Acute (2) Pneumonia due to human coronavirus Problem: Acute (3) Acute respiratory failure with hypoxia Problem: Acute
[2020-02-15] MEDS: METHYLPREDNISOLONE SOD SUCC/PF 40 MG/ML VIAL IV SCH (00:23)
[2020-02-15] MEDS: PANTOPRAZOLE SODIUM 20 MG TABLET.DR PO SCH (07:25)
[2020-02-15 08:48] LABS: Prothrombin Time (Patient) 42.2 Seconds (9.1-10.7)
[2020-02-15 08:51] LABS: INR 4.52 INR (0.92-1.08)
[2020-02-15] MEDS: METOPROLOL TARTRATE 25 MG TABLET PO SCH ×2 (08:57→21:04)
[2020-02-15] MEDS: BETA-CAROTENE(A) W-C , E/MIN 1 TAB TABLET PO SCH (08:57)
[2020-02-15] MEDS: FUROSEMIDE 20 MG TABLET PO SCH (08:58)
--- NOTE | 2020-02-15 10:07 | DS ---
(1) Bilateral upper lobe community acquired pneumonia Problem: Acute (2) Chronic atrial fibrillation Problem: Chronic (3) Dehydration, moderate Problem: Resolved (4) Acute kidney injury superimposed on CKD Problem: Resolved (5) Hypoxia Problem: Resolved (6) Heart failure, chronic, with acute decompensation Problem: Resolved (7) Coronavirus infection Problem: Acute (8) Sepsis Problem: Resolved Qualifiers: Sepsis type: sepsis due to unspecified organism Sepsis acute organ dysfunction status: with acute organ dysfunction Acute respiratory failure type: with hypoxia Severe sepsis shock status: without septic shock (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 Patient shows significant clinical improvement compared to the last time I saw him. His breathing is no longer labored, rhonchi and coarse lung sounds have now resolved on auscultation. Outside of that the patient was found to have fine crackles on left lung base and decreased lung sounds on right lung base, however he was successfully weaned off of oxygen by nasal cannula and is maintaining saturation in the range of 94 to 98% on room air. Patient only reports mild shortness of breath on exertion specifically when he gets up to go to the bathroom. Given the patient's long history with CHF I suspect that this might be his baseline. Patient is dependent on oral diuretics and was admitted with significant bilateral pedal edema which he said he had for more than 3 weeks, in fact the patient saw his PCP several weeks ago who instructed him to continue taking his oral diuretics as prescribed. After treating him with multiple doses of IV diuretics his pedal edema has greatly improved. 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 Therefore decision to discharge patient with at home oxygen was made. I will continue weaning the IV steroids and switch him to additional days of p.o. steroids to continue decreasing the inflammation in his lungs and improve his breathing. He will also be prescribed additional days of p.o. antibiotics to continue treating his pneumonia. Procedures Performed: none Results and Findings: Lab Pending Results 02/10/20 08:00: Lactic Acid, Venous 3.6 H* 02/10/20 08:00: Procalcitonin 0.28 02/10/20 08:06: WBC 7.3, RBC 3.84 L, Hgb 13.3 L, Hct 40.0 L, MCV 104.2 H, MCH 34.6 H, MCHC 33.3, RDW 15.3 H, Plt Count 205, MPV 9.3, Immature Gran % (Auto) 0.50 H, Immature Gran # (Auto) 0.04 H, Neutrophils % 90.7 H, Lymphocytes % 2.3 L, Monocytes % 6.4, Eosinophils % 0.0, Basophils % 0.1, Nucleated RBC % 0.0, Neutrophils # 6.7 H, Lymphocytes # 0.17 L, Monocytes # 0.5, Eosinophils # 0.0, Absolute Basophils 0.0 02/10/20 08:06: Sodium 145 H, Plasma Sodium 146 H, Potassium 4.4, Chloride 109 H, Carbon Dioxide 23.2 L, Anion Gap 17.2 H, BUN 45 H D, Creatinine 1.36, Est GFR (Non-Af Amer) 53 L, BUN/Creatinine Ratio 33.1 H, Random Glucose 190 H, Calcium 8.5, Calcium Adj for Albumin 9.2, Total Bilirubin 1.5 H, AST 41, ALT 39, Alkaline Phosphatase 112, Troponin I 0.116 H*, B-Natriuretic Peptide 00642 H, Total Protein 6.1 L, Albumin 2.7 L 02/10/20 08:08: PT 23.3 H, INR (Anticoag Therapy) 2.44 H 02/10/20 09:25: Chlamy pneumoniae PCR Not detected, Adenovirus (PCR) Not detected, B. pertussis DNA (PCR) Not detected, Coronavirus OC43 (PCR) Not detected, Coronavirus HKU1 (PCR) Detected H, Coronavirus 229E (PCR) Not detected, Coronavirus NL63 (PCR) Not detected, Human Metapneumovir PCR Not detected, Influenza A (H1) PCR Not detected, Influenza A (H1N1) PCR Not detected, Influenza A (H3) PCR Not detected, Influenza B (RT-PCR) Not detected, M. pneumoniae (PCR) Not detected, Parainfluenza 1 (PCR) Not detected, Parainflu rebeka 2 (PCR) Not detected, Parainfluenza 3 (PCR) Not detected, Parainfluenza 4 (PCR) Not detected, RSV (PCR) Not detected, Rhinovirus (PCR) Not detected 02/10/20 12:38: SARS Virus RNA (PCR) Not detected 02/10/20 12:44: Lactic Acid, Venous 2.2 H* 02/11/20 06:33: PT 26.2 H, INR (Anticoag Therapy) 2.75 H 02/11/20 06:33: WBC 7.6, RBC 4.08 L, Hgb 14.2, Hct 42.8, MCV 104.9 H, MCH 34.8 H, MCHC 33.2, RDW 15.3 H, Plt Count 211, MPV 9.4, Immature Gran % (Auto) 0.50 H, Immature Gran # (Auto) 0.04 H, Neutrophils % 87.1 H, Lymphocytes % 3.9 L, Monocytes % 8.3, Eosinophils % 0.1, Basophils % 0.1, Nucleated RBC % 0.0, Neutrophils # 6.6 H, Lymphocytes # 0.30 L, Monocytes # 0.6, Eosinophils # 0.0, Absolute Basophils 0.0 02/11/20 06:33: Sodium 146 H, Plasma Sodium 146 H, Potassium 3.7, Chloride 109 H, Carbon Dioxide 30.5, Anion Gap 10.2, BUN 39 H, Creatinine 1.16, Est GFR (Non- Af Amer) 63, BUN/Creatinine Ratio 33.6 H, Random Glucose 110 D, Calcium 8.4, Calcium Adj for Albumin 9.3, Total Bilirubin 1.2 H, AST 49 H, ALT 44, Alkaline Phosphatase 130, Total Protein 6.0 L, Albumin 2.5 L 02/12/20 06:38: PT 32.4 H, INR (Anticoag Therapy) 3.43 H 02/12/20 06:38: Sodium 148 H, Plasma Sodium 148 H, Potassium 3.6, Chloride 108 H, Carbon Dioxide 32.6, Anion Gap 11.0, BUN 35 H, Creatinine 1.00, Est GFR (Non- Af Amer) 75, BUN/Creatinine Ratio 35.0 H, Random Glucose 116 H, Calcium 8.9, Calcium Adj for Albumin 9.6, Total Bilirubin 1.4 H, AST 50 H, ALT 45, Alkaline Phosphatase 146, Total Protein 6.6, Albumin 2.7 L 02/12/20 09:45: pCO2 26.5 L, pO2 46.2 L, HCO3 17.9 L, Total CO2 18.7 L, Base Excess -4.4 L, ABG pH 7.45, ABG O2 Sat (Measured) 84.9 L 02/13/20 07:19: PT 37.8 H, INR (Anticoag Therapy) 4.03 H* 02/13/20 07:19: Sodium 147 H, Plasma Sodium 147 H, Potassium 4.1, Chloride 108 H, Carbon Dioxide 32.1, Anion Gap 11.0, BUN 36 H, Creatinine 1.05, Est GFR (Non- Af Amer) 71, BUN/Creatinine Ratio 34.3 H, Random Glucose 120 H, Calcium 8.9, Calcium Adj for Albumin 9.6, Total Bilirubin 1.3 H, AST 49 H, ALT 46, Alkaline Phosphatase 154, Total Protein 6.8, Albumin 2.7 L 02/14/20 06:20: PT 37.1 H, INR (Anticoag Therapy) 3.95 H 02/14/20 06:20: WBC 8.6, RBC 4.35 L, Hgb 15.1, Hct 45.7, MCV 105.1 H, MCH 34.7 H, MCHC 33.0, RDW 14.7 H, Plt Count 204, MPV 9.8, Immature Gran % (Auto) 0.80 H, Immature Gran # (Auto) 0.07 H, Neutrophils % 93.9 H, Lymphocytes % 2.0 L, Monocytes % 3.3, Eosinophils % 0.0, Basophils % 0.0, Nucleated RBC % 0.0, Neutrophils # 8.1 H, Lymphocytes # 0.17 L, Monocytes # 0.3, Eosinophils # 0.0, Absolute Basophils 0.0 02/15/20 08:25: PT 42.2 H, INR (Anticoag Therapy) 4.52 H* Discharge Location: Home Disposition: Home Health Service Condition: Stable Face to Face Encounter completed per CMS Guidelines: Yes Discharge Activity: Activity as tolerated Discharge Diet: Low salt, Other - Restrict fluids to 1 L a day Additional Patient Instructions (free text): Will be a TCM appointment. Complete Home Medications List: Complete Home Medication List: vitamins A,C,W-[id number]-jndihu 7,160 unit-113 mg-100 unit tablet 1 tab PO DAILY tab 08/07/18 Durable Medical Equipment See Rx Instructions .ROUTE .MEDSUPPLY #12 ea 08/10/19 Acetaminophen [Tylenol] 650 mg PO Q6H PRN #30 tab 11/06/19 atorvastatin 20 mg tablet 20 mg PO DAILY #30 tab 12/16/19 Amiodarone HCl 200 mg PO DAILY 02/10/20 Furosemide 20 mg PO DAILY PRN 02/10/20 Metoprolol Tartrate [Lopressor] 25 mg PO BID 02/10/20 Warfarin Sodium 0.5 mg PO TUSA 02/10/20 Warfarin Sodium [Coumadin] 1 mg PO SUMOWETHFR 02/10/20
[2020-02-15] MEDS: predniSONE 20 MG TABLET PO SCH (11:12)
--- NOTE | 2020-02-15 12:04 | PN ---
Subjective - Date and Time Seen Date: 02/15/20 Time: 11:51 Subjective Narrative: I am feeling better but I still get short of breath when going to the bathroom. Objective Objective Narrative: 89-year-old male admitted for bilateral upper lobe pneumonia, coronavirus infection, hypoxia, and decompensated CHF was evaluated at bedside was found to be afebrile and in no acute distress. Patient's condition has improved clinically after he was treated with IV steroids during the weekend for suspected ARDS. He was also treated with additional doses of IV diuretics for bilateral pulmonary edema detected on chest x-ray. This morning the patient had less labored breathing and only fine residual crackles on his left lung base and diminished breath sounds on the right lung base. However he maintains adequate oxygen saturation on room air after being successfully weaned off oxygen this morning. Patient also underwent a walk test by nursing staff to evaluate saturation on exertion and was noted to maintain adequate saturation. He also maintained stable vitals. We will keep patient an additional day for observation and for conversion to p.o. meds including steroids and antibiotics, and reevaluate for possible discharge tomorrow. In the meantime we will keep him on telemetry and oximetry to continue monitoring him. Blood cultures as well as COVID 19 testing were negative. - Review of Systems Generalized/Overall Review: Reports: No Symptoms Reported EENTM: Reports: No Symptoms Reported Respiratory: Reports: Shortness of Breath Cardiac: Reports: No Symptoms Reported Abdominal: Reports: No Symptoms Reported Genitourinary Symptoms: Reports: No Symptoms Reported Musculoskeletal Complaints: Reports: No Symptoms Reported Neurological: Reports: No Symptoms Reported Skin: Reports: No Symptoms Reported Endocrine: Reports: No Symptoms Reported - Vitals Vitals: Last Vital Signs Temp 36.7 C 02/15/20 09:57 Pulse 108 H 02/15/20 09:57 Resp 20 02/15/20 09:57 BP 116/67 02/15/20 09:57 Pulse Ox 96 02/15/20 09:57 - Abnormal Lab Findings Abnormal Lab Findings: Abnormal Lab Results 02/15/20 Range/Units 08:25 PT 42.2 H (9.1-10.7) Seconds INR (Anticoag Therapy) 4.52 H* (0.92-1.08) INR - Exam Constitutional: Present: Alert, Oriented x3, Cooperative, Well developed, Well nourished, No distress, Elderly ENT Exam: Present: normal ENT inspection, hard of hearing Neck: Present: non-tender, full range of motion, supple, normal inspection, trachea midline Breasts: Present: Exam deferred Respiratory: Present: no respiratory distress, no accessory muscle use, decreased breath sounds - Decreased breath sounds on right lung base, crackles - Fine crackles on left lung base Cardiovascular/Chest: Present: normal peripheral pulses, no chest tenderness, no gallop, no JVD, no murmur, no rub, irregularly irregular Abdomen: Present: Normal bowel sounds, soft, nontender, nondistended, no rebound tenderness, no hepatospenomegaly, no masses, other - Stoma in right lower quadrant no signs of infection or leak. 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 In the meantime we will continue treatment with p.o. antibiotics, p.o. diuretics, and additional days of p.o. steroids. We will reevaluate him in the morning and possibly discharge him home. - Problems/Diagnosis (1) Bilateral upper lobe community acquired pneumonia Problem: Acute (2) Chronic atrial fibrillation Problem: Chronic (3) Dehydration, moderate Problem: Resolved (4) Acute kidney injury superimposed on CKD Problem: Resolved (5) Hypoxia Problem: Resolved (6) Heart failure, chronic, with acute decompensation Problem: Resolved (7) Coronavirus infection Problem: Acute (8) Sepsis Problem: Resolved Qualifiers: Sepsis type: sepsis due to unspecified organism Sepsis acute organ dysfunction status: with acute organ dysfunction Acute respiratory failure type: with hypoxia Severe sepsis shock status: without septic shock (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
[2020-02-15] MEDS: WARFARIN SODIUM 1 MG TABLET PO SCH (17:00)
[2020-02-15] MEDS: ROSUVASTATIN CALCIUM 10 MG TABLET PO SCH (21:03)
[2020-02-16 06:51] LABS: Prothrombin Time (Patient) 42.9 Seconds (9.1-10.7)
[2020-02-16 06:54] LABS: INR 4.6 INR (0.92-1.08)
[2020-02-16] MEDS: PANTOPRAZOLE SODIUM 20 MG TABLET.DR PO SCH (07:16)
[2020-02-16] MEDS: FUROSEMIDE 20 MG TABLET PO SCH (09:00)
[2020-02-16] MEDS: METOPROLOL TARTRATE 25 MG TABLET PO SCH (09:01)
[2020-02-16] MEDS: BETA-CAROTENE(A) W-C , E/MIN 1 TAB TABLET PO SCH (09:01)
[2020-02-16] MEDS: predniSONE 20 MG TABLET PO SCH (09:01)
--- NOTE | 2020-02-16 09:33 | DS ---
(1) Bilateral upper lobe community acquired pneumonia Problem: Acute (2) Chronic atrial fibrillation Problem: Chronic (3) Dehydration, moderate Problem: Resolved (4) Acute kidney injury superimposed on CKD Problem: Resolved (5) Hypoxia Problem: Resolved (6) Heart failure, chronic, with acute decompensation Problem: Resolved (7) Coronavirus infection Problem: Acute (8) Sepsis Problem: Resolved Qualifiers: Sepsis type: sepsis due to unspecified organism Sepsis acute organ dysfunction status: with acute organ dysfunction Acute respiratory failure type: with hypoxia Severe sepsis shock status: without septic shock (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 Patient continues to do well and reports feeling much better. He says besides the occasional mild shortness of breath while ambulating and exerting himself, he thinks he is at his baseline. There has been no recurrence of fever, patient's cough has resolved, and he is saturating better on room air. Patient maintained stable vitals and no new symptoms besides mild disorientation last night were reported. Given the patient's improvement decision to discharge home with instructions to follow-up with his PCP in 2 weeks was given. Patient was also provided with a prescription for additional days of oral antibiotics and oral steroids to continue treating his pneumonia and the inflammation in his lungs. 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 Patient's INR has been elevated over the past few days so warfarin was placed on hold, therefore we will discharge him with lab orders to repeat INR 2 days in order to restart his anticoagulation. He was also provided with an order to undergo a CMP for evaluation of electrolytes and liver enzymes to be done in 2 weeks for the follow-up visit with his PCP. Procedures Performed: none Results and Findings: Lab Pending Results 02/10/20 08:00: Lactic Acid, Venous 3.6 H* 02/10/20 08:00: Procalcitonin 0.28 02/10/20 08:06: WBC 7.3, RBC 3.84 L, Hgb 13.3 L, Hct 40.0 L, MCV 104.2 H, MCH 34.6 H, MCHC 33.3, RDW 15.3 H, Plt Count 205, MPV 9.3, Immature Gran % (Auto) 0.50 H, Immature Gran # (Auto) 0.04 H, Neutrophils % 90.7 H, Lymphocytes % 2.3 L, Monocytes % 6.4, Eosinophils % 0.0, Basophils % 0.1, Nucleated RBC % 0.0, Neutrophils # 6.7 H, Lymphocytes # 0.17 L, Monocytes # 0.5, Eosinophils # 0.0, Absolute Basophils 0.0 02/10/20 08:06: Sodium 145 H, Plasma Sodium 146 H, Potassium 4.4, Chloride 109 H, Carbon Dioxide 23.2 L, Anion Gap 17.2 H, BUN 45 H D, Creatinine 1.36, Est GFR (Non-Af Amer) 53 L, BUN/Creatinine Ratio 33.1 H, Random Glucose 190 H, Calcium 8.5, Calcium Adj for Albumin 9.2, Total Bilirubin 1.5 H, AST 41, ALT 39, Alkaline Phosphatase 112, Troponin I 0.116 H*, B-Natriuretic Peptide 05412 H, Total Protein 6.1 L, Albumin 2.7 L 02/10/20 08:08: PT 23.3 H, INR (Anticoag Therapy) 2.44 H 02/10/20 09:25: Chlamy pneumoniae PCR Not detected, Adenovirus (PCR) Not detected, B. pertussis DNA (PCR) Not detected, Coronavirus OC43 (PCR) Not detected, Coronavirus HKU1 (PCR) Detected H, Coronavirus 229E (PCR) Not detected, Coronavirus NL63 (PCR) Not detected, Human Metapneumovir PCR Not detected, Influenza A (H1) PCR Not detected, Influenza A (H1N1) PCR Not detected, Influenza A (H3) PCR Not detected, Influenza B (RT-PCR) Not detected, M. pneumoniae (PCR) Not detected, Parainfluenza 1 (PCR) Not detected, Parainfluenza 2 (PCR) Not detected, Parainfluenza 3 (PCR) Not detected, Parainfluenza 4 (PCR) Not detected, RSV (PCR) Not detected, Rhinovirus (PCR) Not detected 02/10/20 12:38: SARS Virus RNA (PCR) Not detected 02/10/20 12:44: Lactic Acid, Venous 2.2 H* 02/11/20 06:33: PT 26.2 H, INR (Anticoag Therapy) 2.75 H 02/11/20 06:33: WBC 7.6, RBC 4.08 L, Hgb 14.2, Hct 42.8, MCV 104.9 H, MCH 34.8 H, MCHC 33.2, RDW 15.3 H, Plt Count 211, MPV 9.4, Immature Gran % (Auto) 0.50 H, Immature Gran # (Auto) 0.04 H, Neutrophils % 87.1 H, Lymphocytes % 3.9 L, Monocytes % 8.3, Eosinophils % 0.1, Basophils % 0.1, Nucleated RBC % 0.0, Neutrophils # 6.6 H, Lymphocytes # 0.30 L, Monocytes # 0.6, Eosinophils # 0.0, Absolute Basophils 0.0 02/11/20 06:33: Sodium 146 H, Plasma Sodium 146 H, Potassium 3.7, Chloride 109 H, Carbon Dioxide 30.5, Anion Gap 10.2, BUN 39 H, Creatinine 1.16, Est GFR (Non- Af Amer) 63, BUN/Creatinine Ratio 33.6 H, Random Glucose 110 D, Calcium 8.4, Calcium Adj for Albumin 9.3, Total Bilirubin 1.2 H, AST 49 H, ALT 44, Alkaline Phosphatase 130, Total Protein 6.0 L, Albumin 2.5 L 02/12/20 06:38: PT 32.4 H, INR (Anticoag Therapy) 3.43 H 02/12/20 06:38: Sodium 148 H, Plasma Sodium 148 H, Potassium 3.6, Chloride 108 H, Carbon Dioxide 32.6, Anion Gap 11.0, BUN 35 H, Creatinine 1.00, Est GFR (Non- Af Amer) 75, BUN/Creatinine Ratio 35.0 H, Random Glucose 116 H, Calcium 8.9, Calcium Adj for Albumin 9.6, Total Bilirubin 1.4 H, AST 50 H, ALT 45, Alkaline Phosphatase 146, Total Protein 6.6, Albumin 2.7 L 02/12/20 09:45: pCO2 26.5 L, pO2 46.2 L, HCO3 17.9 L, Total CO2 18.7 L, Base Excess -4.4 L, ABG pH 7.45, ABG O2 Sat (Measured) 84.9 L 02/13/20 07:19: PT 37.8 H, INR (Anticoag Therapy) 4.03 H* 02/13/20 07:19: Sodium 147 H, Plasma Sodium 147 H, Potassium 4.1, Chloride 108 H, Carbon Dioxide 32.1, Anion Gap 11.0, BUN 36 H, Creatinine 1.05, Est GFR (Non- Af Amer) 71, BUN/Creatinine Ratio 34.3 H, Random Glucose 120 H, Calcium 8.9, Calcium Adj for Albumin 9.6, Total Bilirubin 1.3 H, AST 49 H, ALT 46, Alkaline Phosphatase 154, Total Protein 6.8, Albumin 2.7 L 02/14/20 06:20: PT 37.1 H, INR (Anticoag Therapy) 3.95 H 02/14/20 06:20: WBC 8.6, RBC 4.35 L, Hgb 15.1, Hct 45.7, MCV 105.1 H, MCH 34.7 H, MCHC 33.0, RDW 14.7 H, Plt Count 204, MPV 9.8, Immature Gran % (Auto) 0.80 H, Immature Gran # (Auto) 0.07 H, Neutrophils % 93.9 H, Lymphocytes % 2.0 L, Monocytes % 3.3, Eosinophils % 0.0, Basophils % 0.0, Nucleated RBC % 0.0, Neutrophils # 8.1 H, Lymphocytes # 0.17 L, Monocytes # 0.3, Eosinophils # 0.0, Absolute Basophils 0.0 02/15/20 08:25: PT 42.2 H, INR (Anticoag Therapy) 4.52 H* 02/16/20 06:31: PT 42.9 H, INR (Anticoag Therapy) 4.60 H* Discharge Location: Home Disposition: Home self-care Condition: Stable Face to Face Encounter completed per CMS Guidelines: No Discharge Activity: Activity as tolerated Discharge Diet: Low salt Referrals: María Elena Amato MD [Primary Care Provider] - Lizeth Cho MD [Staff Physician] - Additional Patient Instructions (free text): Will be a TCM appointment. Follow up with Dr Cho for hospital visit f/u only. Dr Amato is still PCP. Prescriptions (Any new or edited meds): Azithromycin 250 mg PO 5XD 5 Days #5 tab Transmission Status: Pending to [facility] predniSONE [Prednisone] 40 mg PO DAILY 4 Days #4 tablet Complete Home Medications List: Complete Home Medication List: vitamins A,C,J-bjzg-[id number] 7,160 unit-113 mg-100 unit tablet 1 tab PO DAILY tab 08/07/18 Durable Medical Equipment See Rx Instructions .ROUTE .MEDSUPPLY #12 ea 08/10/19 Acetaminophen [Tylenol] 650 mg PO Q6H PRN #30 tab 11/06/19 atorvastatin 20 mg tablet 20 mg PO DAILY #30 tab 12/16/19 Amiodarone HCl 200 mg PO DAILY 02/10/20 Furosemide 20 mg PO DAILY PRN 02/10/20 Metoprolol Tartrate [Lopressor] 25 mg PO BID 02/10/20 Warfarin Sodium 0.5 mg PO TUSA 02/10/20 Warfarin Sodium [Coumadin] 1 mg PO SUMOWETHFR 02/10/20 Azithromycin 250 mg PO 5XD 5 Days #5 tab 02/16/20 predniSONE [Prednisone] 40 mg PO DAILY 4 Days #4 tablet 02/16/20
[2020-02-16 11:23] VITALS: BP 98/68
== END 2020-02-16 11:30 | disposition home or self-care (01) | DRG 871 ==
LOC: ER 07:28 → MS 11:40
PROVIDERS: ADMIT Family Medicine; ATTEND Family Medicine
DX: E86.0 Dehydration; A41.9 Sepsis, unspecified organism; J96.01 Acute respiratory failure with hypoxia; B97.29 Other coronavirus as the cause of diseases classified elsewhere; I50.9 Heart failure, unspecified; N17.9 Acute kidney failure, unspecified; Z87.891 Personal history of nicotine dependence; E87.4 Mixed disorder of acid-base balance; J18.9 Pneumonia, unspecified organism; I48.91 Unspecified atrial fibrillation; N18.9 Chronic kidney disease, unspecified; I13.0 Hypertensive heart and chronic kidney disease with heart failure and stage 1 through stage 4 chronic kidney disease, or unspecified chronic kidney disease; I48.20 Chronic atrial fibrillation, unspecified
CPT/HCPCS: 36415; 36600; 71020; 71046; 80053; 82803; 83519; 83605; 83880; 84145; 84484; 85025; 85610; 87040; 87633; 93005; 94760; 96361; 96365; 96375; 97110; 97116; 97163; 99285